=== PATIENT | male | born 1945 | race Caucasian/White ===

== ENCOUNTER 2017-02-02 12:49 | Outpatient (CLI) | payer MEDICARE ==
[2017-02-02 14:13] LABS: Bilirubin Negative (Negative); Blood, Urine Large (Negative); Glucose, Urine (Dipstick) Negative (Negative); Ketone, Urine Negative (Negative); Nitrite Negative (Negative); Protein, Urine (Dipstick) 100 mg/dL (Neg-Trace)
[2017-02-02 14:32] LABS: Hyaline Casts/LPF 0-3 HYALINE CAST LPF (0-3 Hyaline)
[2017-02-02 14:48] LABS: Bacteria/HPF 1+ HPF (None Seen); RBC/HPF 21-50 HPF (0-3); Yeast-All Forms 1+ HPF (None Seen)
--- NOTE | 2017-02-02 17:57 | ULT ---
TESTICULAR ULTRASOUND: Date: 02/02/17 HISTORY: Epididymitis. FINDINGS: There is a complex echogenic mass-like area in the left scrotum with numerous septations measuring a pproximately 4.0 x 5.0 cm. Considerations include infected hydrocele with septations and echogenic d ebris and material. Both testicles have symmetric size and both testicles show normal blood flow wit h color Doppler and spectral analysis. The left testicle does show mild heterogeneity which could re present orchitis. Both testicles measure approximately 4.5 x 2.5 x 3.5 cm. The right testicle appears unremarkable. There is a small right hydrocele. A left varicocele is noted. IMPRESSION: 1. A large complex mass-like lesion with internal septations in the left scrotum possibly represent ing dense echogenic material such as abscess. 2. Left varicocele. 3. Small right hydrocele. 4. Heterogeneous left testicle. Orchitis is suspected. POS: [facility]
== END 2017-02-02 12:50 | disposition home or self-care (01) ==
LOC: ULT 12:49
PROVIDERS: ATTEND Urology
DX: N45.1 Epididymitis (principal); I86.1 Scrotal varices; N43.3 Hydrocele, unspecified
CPT/HCPCS: 76870; 81001; 87086; 93976

== ENCOUNTER 2017-02-09 15:33 | Outpatient (CLI) | payer MEDICARE ==
[2017-02-09 17:24] LABS: PTT 34.6 SEC (22.9-36.1); Prothrombin Time 17.6 SEC (12.0-14.7)
[2017-02-09 17:25] LABS: Hematocrit 34.6 % (42.0-52.0); Red Blood Cell (RBC) Count 3.58 mill/uL (4.70-6.10); White Blood Cell (WBC) Count 3.8 thou/uL (4.8-10.8)
[2017-02-09 17:37] LABS: Anion Gap 11 mmol/L (10-20); BUN (Urea Nitrogen) 17 mg/dL (8.4-25.7); Calc. Creatinine Clearance 0 mL/min (70-130); Calcium 9.8 mg/dL (7.8-10.44); Carbon Dioxide 25 mmol/L (23-31); Chloride 110 mmol/L (98-107); Estimated GFR-MDRD 74
--- NOTE | 2017-02-09 18:55 | RAD ---
TWO VIEWS CHEST: History: Pre-operative chest radiograph. Date: 02-09-17 Comparison: 12-04-16 FINDINGS: Images demonstrate old healed fracture in the right seventh rib. This is unchanged since the previou s comparison exam. No newly developed masses or lesions are seen. There is some minimal blunting of the right costophrenic angle compatible with a tiny right sided pleural effusion or right pleural sc ar, again unchanged from the previous exam. IMPRESSION: Stable two views chest. POS: [facility]
--- NOTE | 2017-02-10 11:58 | EKG ---
Test Reason : Blood Pressure : / mmHG Vent. Rate : 067 BPM Atrial Rate : 069 BPM P-R Int : 000 ms QRS Dur : 128 ms QT Int : 438 ms P-R-T Axes : 000 060 -68 degrees QTc Int : 462 ms Atrial fibrillation Non-specific intra-ventricular conduction block Nonspecific T wave abnormality Abnormal ECG When compared with ECG of 18-JUL-2007 09:56, Inverted T waves have replaced nonspecific T wave abnormality in Lateral leads Confirmed by DR. Pradeep GAO ([id number]) on 02/10/2017 11:58:08 AM Referred By: ROCCO Confirmed By:DR. Pradeep GAO
--- OUTSIDE RECORDS SUMMARY | 2017-02-11 22:51 | XMS | Clinical Summary ---
:1945 Author Organization [facility] Address [address] [place] [address] Phone Care Team Providers Name Role Phone , Primary Care Provider Unavailable Allergies Active Allergy Reactions Severity Noted Date Comments No Known Drug Allergies 09/02/2015 Current Medications Prescription Sig. Disp. Refills Start Date End Date Status spironolactone (ALDACTONE) Take 25 mg by Active 25 MG tablet mouth. glimepiride (AMARYL) 2 MG Take 2 mg by Active tablet mouth. cortisone (CORTONE) 25 mg Take 25 mg by Active tablet mouth. WARFARIN SODIUM (WARFARIN Take by mouth. Active ORAL) finasteride (PROSCAR) 5 mg Take 5 mg by Active tablet mouth. furosemide (LASIX) 40 MG Take 40 mg by Active tablet mouth. atorvastatin (LIPITOR) 20 Take 20 mg by Active MG tablet mouth. lisinopril Take 20 mg by Active (PRINIVIL,ZESTRIL) 20 MG mouth. tablet amLODIPine (NORVASC) 5 MG Take 5 mg by Active tablet mouth. ranolazine (RANEXA) 1,000 Take 1,000 mg by Active mg 12 hr tablet mouth. Active Problems Not on file Social History Tobacco Use Types Packs/Day Years Used Date Never Assessed Sex Assigned at Date Recorded Not on file Last Filed Vital Signs Not on file Plan of Treatment Not on file Results Not on filefrom Last 3 Months
== END 2017-02-09 15:34 | disposition home or self-care (01) ==
LOC: LABBT 15:33
PROVIDERS: ATTEND Urology
DX: Z01.818 Encounter for other preprocedural examination (principal); N47.1 Phimosis; N45.1 Epididymitis; N43.1 Infected hydrocele; I48.91 Unspecified atrial fibrillation
CPT/HCPCS: 71020; 80048; 85027; 85610; 85730; 93005; 93010

== ENCOUNTER 2017-02-10 13:53 | Outpatient (CLI) | payer MEDICARE ==
[2017-02-10 15:32] LABS: Bilirubin Small (Negative); Blood, Urine Large (Negative); Glucose, Urine (Dipstick) Negative (Negative); Ketone, Urine Negative (Negative); Nitrite Negative (Negative); Protein, Urine (Dipstick) 300 mg/dL (Neg-Trace)
[2017-02-10 15:47] LABS: Bacteria/HPF None Seen HPF (None Seen); Hyaline Casts/LPF 4-6 HYALINE CAST LPF (0-3 Hyaline); RBC/HPF GREATER THAN 50-TNTC HPF (0-3); Squamous Epithelial 0-3 HPF (0-3)
--- OUTSIDE RECORDS SUMMARY | 2017-02-12 08:33 | XMS | Clinical Summary ---
:1945 Author Organization [facility] Address [address] [place] [address] Phone Care Team Providers Name Role Phone [...]
== END 2017-02-10 13:54 | disposition home or self-care (01) ==
LOC: LABBT 13:53
PROVIDERS: ATTEND Urology
DX: Z01.818 Encounter for other preprocedural examination (principal); N47.1 Phimosis; N45.1 Epididymitis; N43.1 Infected hydrocele; I48.91 Unspecified atrial fibrillation
CPT/HCPCS: 81001; 87086

== ENCOUNTER 2017-06-02 12:36 | Outpatient (CLI) | payer MEDICARE ==
[2017-06-02] MEDS ORDERED: ISOVUE-370 76%-LOCM 1 ML ONE (13:28)
== END 2017-06-02 12:37 | disposition home or self-care (01) ==
LOC: BICCT 12:36
PROVIDERS: ATTEND Urology
DX: R31.0 Gross hematuria (principal); N40.0 Benign prostatic hyperplasia without lower urinary tract symptoms; N32.89 Other specified disorders of bladder; K57.30 Diverticulosis of large intestine without perforation or abscess without bleeding; K40.90 Unilateral inguinal hernia, without obstruction or gangrene, not specified as recurrent; N28.89 Other specified disorders of kidney and ureter
CPT/HCPCS: 36415; 74178; 81001; 82565

== ENCOUNTER 2019-04-13 14:13 | Observation (INO) | payer MEDICARE ==
--- NOTE | 2019-04-13 16:24 | RAD ---
Exam: XR Elbow Rt 4 View STANDARD HISTORY: Right elbow pain with right arm swelling with extension of swelling into the forearm. COMPARISON: None FINDINGS: Small enthesophyte is seen involving the posterior aspect of the olecranon. There is a corticated oss eous density seen adjacent to and just distal to the medial epicondyle likely related to a remote avulsion injury. No acute fracture, dislocation, or other acute osseous abnormality is identified. There is subcutaneous soft tissue swelling seen about the elbow with subcutaneous soft tissue swellin g seen involving the lower arm and extending into the visualized forearm. Vascular calcifications are seen in the proximal forearm. IMPRESSION: 1. Subcutaneous soft tissue swelling about the elbow. Findings could be related to cellulitis in the correct clinical scenario. A greater degree of subcutaneous soft tissue swelling is seen posterior to the olecranon process of the ulna. Fluid in the olecranon bursa cannot be entirely excluded. 2. No acute osseous abnormality.
[2019-04-13 16:31] LABS: #Lymphocytes 1.1 thou/uL (1.20-3.40); #Monocytes 0.4 thou/uL (0.11-0.59); #Neutrophils 4.1 thou/uL (1.40-6.50); %Basophils 0.2 % (0.0-1.0); %Eosinophils 0.6 % (0.0-10.0); %Monocytes 7.8 % (0.0-10.0); %Neutrophils 71.4 % (42.0-75.0); Mean Corpuscular HGB CONC 32.8 g/dL (32.0-36.0); Mean Corpuscular Hemoglobin 30.8 pg (27.0-31.0); Mean Corpuscular Volume 93.7 fL (78.0-98.0); RBC Distribution Width 13.8 % (11.5-14.5); Red Blood Cell (RBC) Count 3.57 mill/uL (4.70-6.10); White Blood Cell (WBC) Count 5.7 thou/uL (4.8-10.8)
[2019-04-13 16:51] LABS: ALT (SGPT) 9 U/L (8-55); AST (SGOT) 18 U/L (5-34); Albumin 4.1 g/dL (3.4-4.8); Alkaline Phosphatase 123 U/L (40-110); Anion Gap 13 mmol/L (10-20); BUN (Urea Nitrogen) 20 mg/dL (8.4-25.7); Bilirubin, Total 1.5 mg/dL (0.2-1.2); CRP (Inflammatory) 5.54 mg/dL (= or < 0.5); Calc. Creatinine Clearance 0 mL/min (70-130); Calcium 9.6 mg/dL (7.8-10.44); Carbon Dioxide 24 mmol/L (23-31); Chloride 103 mmol/L (98-107); Estimated GFR-MDRD 55; Globulin 3.2 g/dL (2.4-3.5); Glucose 125 mg/dL (83-110); Potassium 3.8 mmol/L (3.5-5.1); Protein, Total 7.3 g/dL (5.8-8.1); Sodium 136 mmol/L (136-145)
[2019-04-13] MEDS ORDERED: cefTRIAXone\\ROCEPHIN 2 GM VIAL ONE (16:52)
[2019-04-13 16:59] LABS: Mean Platelet Volume 8.7 fL (7.4-10.4); Platelet Count 116 thou/uL (130-400); Platelet Morphology Comment Appears Decreased; RBC Morphology Normal
[2019-04-13] MEDS ORDERED: Cefepime 2 GM VIAL ONE (17:16)
[2019-04-13] MEDS ORDERED: Bisacodyl 10 MG SUPP PR PRN (17:41)
[2019-04-13] MEDS ORDERED: Ondansetron PF 4 MG/2 ML Vial IVP PRN (17:41)
[2019-04-13] MEDS ORDERED: Calcium Carbonate 500 MG ChewTAB PO PRN (17:41)
[2019-04-13] MEDS ORDERED: Acetaminophen 325 MG TAB PO PRN (17:41)
[2019-04-13] MEDS ORDERED: Senokot S 8.6-50 MG TAB PO PRN (17:41)
[2019-04-13] MEDS ORDERED: Ondansetron ODT 4 MG TAB PO PRN (17:41)
--- NOTE | 2019-04-13 17:44 | ULT ---
RIGHT UPPER EXTREMITY VENOUS DUPLEX EXAM: 04/13/19 HISTORY: Right upper extremity pain and swelling. Real time color Doppler evaluation of the right upper extremity was performed to include the internal jugular, subclavian, axillary, basilic, brachial and cephalic veins. This shows a patent deep venous system. There is normal compressibility and augmentation. There is no evidence of DVT. IMPRESSION: No evidence of DVT of the right upper extremity. POS: [facility]
[2019-04-13 17:48] LABS: Lactic Acid 1.7 mmol/L (0.5-2.2)
[2019-04-13] MEDS ORDERED: traMADol HCl 50 MG TAB PO PRN (17:50)
--- NOTE | 2019-04-13 18:26 | HP ---
PRIMARY CARE PHYSICIAN: EMILY Cuellar. PRIMARY INSURANCE HEALTHCARE REPRESENTATIVE: Ascencion Peters MD. CHIEF COMPLAINT: Right upper extremity swelling of 2 days' duration. HISTORY OF PRESENT ILLNESS: The patient is a 73-year-old male with cardiomyopathy and atrial fibrillation, on anticoagulation, who presented to the emergency room with above complaints. Over the last 2-3 days, the patient noticed swelling along with erythema around the right elbow. This progressively got worse. This morning, he had significant swelling of his whole right forearm. He also had fever with chills. He did not check his temperature, however. He had [id number] pain as well. The pain was worse with movement of his upper extremity. He denies any injuries or fall. He reports significant tenderness around his right elbow. No nausea or vomiting reported. In the emergency room, initial vital signs showed temperature 99.3, respirations of 18, pulse rate of 70 with a blood pressure of 123/61 with O2 saturation 96% on room air. Right upper extremity Doppler was negative for DVT. The right upper extremity x-rays showed subcutaneous soft tissue swelling. Fluid in the olecranon bursa cannot be entirely excluded. He received cefepime along with vancomycin in the emergency room. PAST MEDICAL HISTORY: 1. Chronic systolic heart failure, currently on heart transplant list. 2. Diabetes mellitus, type 2. 3. Benign prostatic hypertrophy. 4. Obstructive sleep apnea, on CPAP at 12 cm nightly. 5. Hyperlipidemia. 6. Obesity. 7. Hypertension. 8. Left inguinal hernia. 9. Left hydrocele. PAST SURGICAL HISTORY: 1. Left hydrocelectomy in 2017. 2. Left hernia repair in 2017. 3. Left epididymectomy by Dr. Solis in 2017. ALLERGIES: NO KNOWN DRUG ALLERGIES. CURRENT HOME MEDICATIONS: 1. Metformin 1000 mg b.i.d. 2. Lasix 40 mg daily. 3. Potassium chloride 20 mEq daily. 4. Pravastatin 20 mg nightly. 5. Eliquis 5 mg b.i.d. 6. Carvedilol 50 mg b.i.d. 7. Finasteride 5 mg daily. 8. Lisinopril 20 mg daily. SOCIAL HISTORY: The patient is a former smoker. Currently lives at home with his . He is a full code and makes his own decision with the help of his . FAMILY HISTORY: Heart disease and hypertension run in his family. REVIEW OF SYSTEMS: All other review of systems were reviewed and were found negative. PHYSICAL EXAMINATION: VITAL SIGNS: As discussed above. GENERAL: A 73-year-old male, in no significant distress. Pain controlled. HEENT: Head, atraumatic and normocephalic. Sclerae anicteric. Moist mucous membranes. No oral lesion. NECK: Supple. No JVD. No carotid bruit. LUNGS: Clear to auscultation bilaterally. No wheezing, rales, or rhonchi. HEART: S1 and S2 present. Regular rate and rhythm. No rubs or gallops. ABDOMEN: Soft and nontender. Bowel sounds present. EXTREMITIES: There is significant swelling along with warmth and erythema of the right forearm. There is maximal tenderness over the right olecranon area. Lower extremity had chronic ulceration. SKIN: As discussed above. NEUROLOGIC: Grossly nonfocal. Moves all 4 extremities. PSYCHIATRIC: Alert, awake, and oriented x3. Normal affect. LYMPH NODES: No palpable lymph nodes in the neck and groin. LABORATORY FINDINGS: WBC 5.7 with hemoglobin 11, hematocrit 33.5, and platelets of 116. Chemistry showed sodium 136, potassium 3.8, chloride 103, bicarb 24, BUN 20, and creatinine 1.28. Lactic acid 1.7. Total bilirubin 1.5. CRP was 5.5. Elbow x-ray by my review as discussed above. Right upper extremity Doppler was negative for DVT. IMPRESSION: 1. Right upper extremity cellulitis with suspected right olecranon bursitis. 2. Chronic systolic heart failure, followed by Dr. Ascencion Peters, compensated. 3. Chronic atrial fibrillation, on anticoagulation. 4. Hypertension. 5. Hyperlipidemia. 6. Diabetes mellitus, type 2. PLAN: The patient will be monitored on the medical floor as observation. IV vancomycin and ceftriaxone. Monitor vancomycin level. All other home medications have been restarted. We will reassess in a.m. and decide if orthopedic team needs to be consulted me. There is no need for insulin sliding scale. We will try to arrange for a CPAP tonight. I advised the spouse to get a CPAP machine tomorrow. Pain controlled. Plan of care was discussed with the patient in detail. He stated understanding. Job ID: [id number]
[2019-04-13 19:58] VITALS: BMI 37.0
[2019-04-13] MEDS: Pravastatin Sodium 20 MG TAB PO SCH (21:40)
[2019-04-13] MEDS: Carvedilol 25 MG TAB PO SCH (21:40)
[2019-04-13] MEDS: Apixaban 5 MG TAB PO SCH (23:22)
[2019-04-14] MEDS: cefTRIAXone\\ROCEPHIN 2 GM in Sodium Chloride 0.9% 100 ML IVPB SCH (01:50)
[2019-04-14] MEDS: Vancomycin 1.5 GRAM/300 ML BAG 1.5 GM in Premix Bag 1 BAG IVPB SCH ×2 (04:09→16:57)
[2019-04-14 05:19] LABS: #Lymphocytes 1.2 thou/uL (1.20-3.40); #Monocytes 0.5 thou/uL (0.11-0.59); %Basophils 0.1 % (0.0-1.0); %Lymphocytes 25.6 % (21.0-51.0); %Monocytes 11.2 % (0.0-10.0); %Neutrophils 62.2 % (42.0-75.0); Hemoglobin 9.6 g/dL (14.0-18.0); Mean Corpuscular HGB CONC 33.2 g/dL (32.0-36.0); Mean Corpuscular Volume 93.5 fL (78.0-98.0); Mean Platelet Volume 8.9 fL (7.4-10.4); Platelet Count 101 thou/uL (130-400); RBC Distribution Width 13.8 % (11.5-14.5); Red Blood Cell (RBC) Count 3.09 mill/uL (4.70-6.10); White Blood Cell (WBC) Count 4.8 thou/uL (4.8-10.8)
[2019-04-14 05:48] LABS: ALT (SGPT) Less than 7 U/L (8-55); AST (SGOT) 15 U/L (5-34); Albumin 3.5 g/dL (3.4-4.8); Alkaline Phosphatase 100 U/L (40-110); Anion Gap 13 mmol/L (10-20); BUN (Urea Nitrogen) 20 mg/dL (8.4-25.7); Bilirubin, Total 0.8 mg/dL (0.2-1.2); Calc. Creatinine Clearance 96 mL/min (70-130); Calcium 8.6 mg/dL (7.8-10.44); Carbon Dioxide 24 mmol/L (23-31); Chloride 104 mmol/L (98-107); Estimated GFR-MDRD 61; Globulin 2.8 g/dL (2.4-3.5); Glucose 136 mg/dL (83-110); Magnesium 1.7 mg/dL (1.6-2.6); Potassium 3.8 mmol/L (3.5-5.1); Protein, Total 6.3 g/dL (5.8-8.1); Sodium 137 mmol/L (136-145)
[2019-04-14] MEDS ORDERED: metFORMIN 500 MG TAB PO SCH (08:00)
[2019-04-14] MEDS: Carvedilol 25 MG TAB PO SCH ×2 (08:18→20:57)
[2019-04-14] MEDS: Lisinopril 20 MG TAB PO SCH (08:18)
[2019-04-14] MEDS: Apixaban 5 MG TAB PO SCH ×2 (08:18→20:57)
[2019-04-14] MEDS: Furosemide 40 MG TAB PO SCH (08:19)
[2019-04-14] MEDS: Potassium Chloride 20 MEQ TAB PO SCH (08:19)
[2019-04-14] MEDS: Finasteride 5 MG TAB PO SCH (08:19)
[2019-04-14] MEDS: metFORMIN 500 MG TAB PO SCH (16:57)
[2019-04-14] MEDS: Pravastatin Sodium 20 MG TAB PO SCH (20:56)
--- NOTE | 2019-04-14 21:17 | PDOC.HOSPP ---
- Subjective Encounter Date: 04/14/19 Encounter Time: 08:00 Subjective: Patient seen and examined for RUE Cellulitis. Erythema improving. No new complaints. No overnight events - Objective Vital Signs & Weight: Vital Signs (12 hours) Temp Pulse Resp BP Pulse Ox 04/14/19 19:15 98.9 F 71 18 143/68 H 97 04/14/19 15:25 98.4 F 61 18 110/51 L 98 04/14/19 11:18 98.6 F 86 18 137/61 95 Weight Weight 265 lb 4.8 oz I&O: 04/13/19 04/14/19 04/15/19 06:59 06:59 06:59 Intake Total 400 1020 Balance 400 1020 Result Diagrams: 04/14/19 05:01 04/14/19 05:01 Radiology Reviewed by me: Yes (No DVT) Hospitalist ROS - Review of Systems Respiratory: denies: cough, dry, shortness of breath, hemoptysis, SOB with excertion, pleuritic pain, sputum, wheezing, other Cardiovascular: denies: chest pain, palpitations, orthopnea, paroxysmal noc. dyspnea, edema, light headedness, other - Medication Medications: Active Medications Generic Name Dose Route Start Last Admin Trade Name Freq PRN Reason Stop Dose Admin Apixaban 5 mg 04/13/19 21:00 04/14/19 20:57 Eliquis PO 5 mg BID YAJAIRA Administration Carvedilol 50 mg 04/13/19 21:00 04/14/19 20:57 Coreg PO 50 mg BID YAJAIRA Administration Finasteride 5 mg 04/14/19 09:00 04/14/19 08:19 Proscar PO 5 mg DAILY YAJAIRA Administration Furosemide 40 mg 04/14/19 09:00 04/14/19 08:19 Lasix PO 40 mg DAILY YAJAIRA Administration Vancomycin HCl 1.5 gm/ Device 300 mls @ 200 mls/hr 04/14/19 04:00 04/14/19 16 :57 IVPB 300 mls 0400,1600 YAJAIRA Administration Ceftriaxone Sodium 2 gm/ 100 mls @ 200 mls/hr 04/14/19 02:00 04/14/19 01:50 Sodium Chloride IVPB 100 mls 0200 YAJAIRA Administration Lisinopril 20 mg 04/14/19 09:00 04/14/19 08:18 Zestril PO 20 mg DAILY YAJAIRA Administration Metformin HCl 500 mg 04/14/19 17:00 04/14/19 16:57 Glucophage PO Not Given BID-WM [facility] Potassium Chloride 20 meq 04/14/19 09:00 04/14/19 08:19 K-Dur PO 20 meq DAILY YAJAIRA Administration Pravastatin Sodium 20 mg 04/13/19 21:00 04/14/19 20:56 Pravachol PO 20 mg HS YAJAIRA Administration - Exam General Appearance: NAD Neck: supple, no JVD Heart: RRR, no gallops Respiratory: CTAB, no rales Gastrointestinal: non-tender, non-distended Extremities: 2+ LE edema (RUE) Hosp A/P - Plan 1. Right upper extremity cellulitis with suspected right olecranon bursitis. 2. Chronic systolic heart failure, followed by Dr. Ascencion Peters, compensated. 3. Chronic atrial fibrillation, on anticoagulation. 4. Hypertension. 5. Hyperlipidemia. 6. Diabetes mellitus, type 2. PLAN: Cont IV Vancomycin/Ceftriaxone Monitor Vancomycin level Cont other meds DC in 24-48 hr if stable Change Atbx to PO in AM Blood cultures negative
[2019-04-15] MEDS: cefTRIAXone\\ROCEPHIN 2 GM in Sodium Chloride 0.9% 100 ML IVPB SCH (02:13)
[2019-04-15] MEDS: Vancomycin 1.5 GRAM/300 ML BAG 1.5 GM in Premix Bag 1 BAG IVPB SCH ×2 (03:14→14:03)
[2019-04-15 04:26] LABS: Vancomycin, Trough 19.2 ug/mL
[2019-04-15] MEDS: metFORMIN 500 MG TAB PO SCH (08:15)
[2019-04-15] MEDS: Potassium Chloride 20 MEQ TAB PO SCH (08:15)
[2019-04-15] MEDS: Carvedilol 25 MG TAB PO SCH (08:15)
[2019-04-15] MEDS: Apixaban 5 MG TAB PO SCH (08:15)
[2019-04-15] MEDS: Finasteride 5 MG TAB PO SCH (08:16)
[2019-04-15] MEDS: Lisinopril 20 MG TAB PO SCH (08:16)
[2019-04-15] MEDS: Furosemide 40 MG TAB PO SCH (08:16)
--- NOTE | 2019-04-15 12:26 | DIS ---
DATE OF ADMISSION: 04/13/2019 DATE OF DISCHARGE: 04/15/2019 DISCHARGE DISPOSITION: Home. FOLLOWUP: Follow up with Dr. Jaimie Amezcua in 3 days. ALLERGIES: NO KNOWN DRUG ALLERGIES. DISCHARGE MEDICATIONS: 1. Keflex 500 mg every 6 hourly for next 10 days. 2. Doxycycline 100 mg b.i.d. for next 10 days. All other home medications were left unchanged. The patient was seen and examined on the day of discharge. Right upper extremity erythema has significantly improved. Swelling is improving. BRIEF HOSPITAL COURSE: The patient is a 73-year-old male, who presented to the hospital with erythema along with tenderness and swelling of the right upper extremity of 2 days duration. His workup was consistent with right upper extremity cellulitis. He was started on IV vancomycin and ceftriaxone with good improvement. The tenderness has significantly improved. He still has some swelling. Erythema has resolved. His antibiotic will be transitioned to oral for 10 more days. He was advised to follow up with his PCP in 3 days. Please refer to the history and physical for details on initial presentation. FINAL DIAGNOSES: 1. Right upper extremity cellulitis with suspected right olecranon bursitis improving. 2. Chronic systolic heart failure, followed by Dr. Ascencion Peters. 3. Chronic atrial fibrillation, on anticoagulation. 4. Hypertension. 5. Hyperlipidemia. 6. Diabetes mellitus type 2. 7. Abnormal LFTs on admission, resolved. 8. Chronic kidney disease, stage 2. 9. Chronic anemia. 10. Obesity with a BMI of 36.8. 11. Chronic thrombocytopenia. SIGNIFICANT LABS: CRP 5.54, WBC 5.7 without left shift. Plan was discussed with the patient in detail. He stated understanding. Job ID: [id number]
[2019-04-15 13:02] VITALS: BP 126/55; TEMP 97.5
== END 2019-04-15 15:58 | disposition home or self-care (01) ==
LOC: ERS 14:13 → 2SW 17:08
PROVIDERS: ADMIT Internal Medicine; ATTEND Internal Medicine
DX: L03.113 Cellulitis of right upper limb (principal); I13.0 Hypertensive heart and chronic kidney disease with heart failure and stage 1 through stage 4 chronic kidney disease, or unspecified chronic kidney disease; E11.22 Type 2 diabetes mellitus with diabetic chronic kidney disease; N18.2 Chronic kidney disease, stage 2 (mild); D63.1 Anemia in chronic kidney disease; I50.22 Chronic systolic (congestive) heart failure; E78.5 Hyperlipidemia, unspecified; D69.6 Thrombocytopenia, unspecified; E66.9 Obesity, unspecified; I48.20 Chronic atrial fibrillation, unspecified; I42.9 Cardiomyopathy, unspecified; G47.33 Obstructive sleep apnea (adult) (pediatric); Z68.36 Body mass index [BMI] 36.0-36.9, adult; Z79.01 Long term (current) use of anticoagulants; Z79.84 Long term (current) use of oral hypoglycemic drugs; Z79.899 Other long term (current) drug therapy; Z87.891 Personal history of nicotine dependence; Z99.89 Dependence on other enabling machines and devices
CPT/HCPCS: 36415; 80053; 80202; 83605; 83735; 85025; 85652; 86140; 87040; 94660; 96365; 96366; 96367; 96375; G0378; J0692; J0696; J3370; J3490

== ENCOUNTER 2020-06-09 13:25 | Inpatient (IN) | payer MEDICARE ==
[2020-06-09] MEDS ORDERED: Furosemide 40 MG/4 ML VIAL ONE (14:15)
[2020-06-09] MEDS ORDERED: Acetaminophen 500 MG TAB ONE (14:22)
[2020-06-09] MEDS ORDERED: HumaLOG 300 UNITS/3 ML VIAL SC PRN (18:17)
[2020-06-09] MEDS ORDERED: Dextrose 5% in Water 1,000 ML IV PRN (18:17)
[2020-06-09] MEDS ORDERED: Dextrose 50% Abboject 50 ML SYRINGE SLOW IVP PRN (18:17)
[2020-06-09] MEDS ORDERED: Ondansetron ODT 4 MG TAB PO PRN (18:21)
[2020-06-09] MEDS ORDERED: Famotidine 20 MG TAB ONE (20:31)
[2020-06-09] MEDS: Apixaban 5 MG TAB PO SCH (20:53)
[2020-06-09] MEDS: Atorvastatin Calcium 10 MG TAB PO SCH (20:53)
[2020-06-09] MEDS: Famotidine 20 MG TAB PO SCH (20:53)
[2020-06-09] MEDS: Carvedilol 25 MG TAB PO SCH (20:53)
[2020-06-10] MEDS ORDERED: Furosemide 40 MG TAB PO SCH (06:00)
[2020-06-10] MEDS ORDERED: Furosemide 100 MG/10 ML VIAL SLOW IVP SCH (06:00)
[2020-06-10] MEDS: Famotidine 20 MG TAB PO SCH ×2 (08:57→19:59)
[2020-06-10] MEDS: Potassium Chloride 20 MEQ TAB PO SCH (08:57)
[2020-06-10] MEDS: Carvedilol 25 MG TAB PO SCH ×2 (08:58→19:58)
[2020-06-10] MEDS: Apixaban 5 MG TAB PO SCH ×2 (08:58→19:58)
[2020-06-10] MEDS: Finasteride 5 MG TAB PO SCH (08:58)
[2020-06-10] MEDS ORDERED: Lisinopril 20 MG TAB PO SCH (09:00)
[2020-06-10] MEDS: Furosemide 100 MG/10 ML VIAL SLOW IVP SCH ×2 (09:13→14:48)
[2020-06-10] MEDS: Acetaminophen 325 MG TAB PO PRN (15:05)
[2020-06-10] MEDS: Atorvastatin Calcium 10 MG TAB PO SCH (19:58)
[2020-06-10] MEDS ORDERED: OLANZapine 10 MG VIAL IM SCH ×2 (21:15→21:30)
[2020-06-10] MEDS ORDERED: Sterile Water 10 ML VIAL FS PRN (21:15)
[2020-06-11] MEDS: Furosemide 100 MG/10 ML VIAL SLOW IVP SCH ×2 (05:48→14:40)
[2020-06-11] MEDS: Apixaban 5 MG TAB PO SCH ×2 (08:28→20:40)
[2020-06-11] MEDS: Finasteride 5 MG TAB PO SCH (08:28)
[2020-06-11] MEDS: Famotidine 20 MG TAB PO SCH ×2 (08:28→20:39)
[2020-06-11] MEDS: Carvedilol 25 MG TAB PO SCH ×2 (08:28→20:40)
[2020-06-11] MEDS: Potassium Chloride 20 MEQ TAB PO SCH (08:28)
[2020-06-11] MEDS ORDERED: Carvedilol 25 MG TAB PO SCH (09:00)
[2020-06-11] MEDS: Atorvastatin Calcium 10 MG TAB PO SCH (20:39)
[2020-06-12] MEDS: Furosemide 100 MG/10 ML VIAL SLOW IVP SCH (06:46)
[2020-06-12] MEDS: Apixaban 5 MG TAB PO SCH ×2 (10:30→21:50)
[2020-06-12] MEDS: Potassium Chloride 20 MEQ TAB PO SCH (15:09)
[2020-06-12] MEDS: Finasteride 5 MG TAB PO SCH (15:09)
[2020-06-12] MEDS: Famotidine 20 MG TAB PO SCH (15:09)
[2020-06-12] MEDS: Carvedilol 25 MG TAB PO SCH ×2 (15:09→21:50)
[2020-06-12] MEDS ORDERED: Acetaminophen 325 MG Suppository PR PRN (18:34)
[2020-06-12] MEDS: Acetaminophen 325 MG TAB PO PRN (21:49)
[2020-06-12] MEDS: Atorvastatin Calcium 10 MG TAB PO SCH (21:51)
[2020-06-12] MEDS: Piperacillin/Tazobactam 2.25 GM in Sodium Chloride 0.9% 100 ML IVPB SCH (23:49)
[2020-06-13] MEDS: Acetaminophen 325 MG TAB PO PRN ×2 (04:21→10:20)
[2020-06-13] MEDS: Piperacillin/Tazobactam 2.25 GM in Sodium Chloride 0.9% 100 ML IVPB SCH ×4 (05:59→23:21)
[2020-06-13] MEDS: Famotidine 20 MG TAB PO SCH (10:21)
[2020-06-13] MEDS: Carvedilol 25 MG TAB PO SCH ×2 (10:21→20:15)
[2020-06-13] MEDS: Apixaban 5 MG TAB PO SCH ×2 (10:21→20:15)
[2020-06-13] MEDS: Potassium Chloride 20 MEQ TAB PO SCH (10:22)
[2020-06-13] MEDS: Finasteride 5 MG TAB PO SCH (10:22)
[2020-06-13] MEDS: hydrALAZINE 25 MG TAB PO SCH ×3 (10:22→20:25)
[2020-06-13] MEDS: Atorvastatin Calcium 10 MG TAB PO SCH (20:16)
[2020-06-14] MEDS: Piperacillin/Tazobactam 2.25 GM in Sodium Chloride 0.9% 100 ML IVPB SCH ×4 (05:25→23:10)
[2020-06-14] MEDS: HumaLOG 300 UNITS/3 ML VIAL SC PRN ×2 (06:32→17:35)
[2020-06-14] MEDS: Apixaban 5 MG TAB PO SCH ×2 (08:08→20:33)
[2020-06-14] MEDS: Carvedilol 25 MG TAB PO SCH ×2 (08:08→20:33)
[2020-06-14] MEDS: Potassium Chloride 20 MEQ TAB PO SCH (08:09)
[2020-06-14] MEDS: Finasteride 5 MG TAB PO SCH (08:09)
[2020-06-14] MEDS: Famotidine 20 MG TAB PO SCH (08:09)
[2020-06-14] MEDS: hydrALAZINE 25 MG TAB PO SCH ×3 (08:09→20:33)
[2020-06-14] MEDS: Acetaminophen 325 MG TAB PO PRN (12:44)
[2020-06-14] MEDS: Atorvastatin Calcium 10 MG TAB PO SCH (20:33)
[2020-06-15] MEDS: Piperacillin/Tazobactam 2.25 GM in Sodium Chloride 0.9% 100 ML IVPB SCH ×4 (05:11→23:29)
[2020-06-15] MEDS: Finasteride 5 MG TAB PO SCH (09:18)
[2020-06-15] MEDS: Famotidine 20 MG TAB PO SCH (09:18)
[2020-06-15] MEDS: Apixaban 5 MG TAB PO SCH ×2 (09:18→21:18)
[2020-06-15] MEDS: hydrALAZINE 25 MG TAB PO SCH ×3 (09:18→21:18)
[2020-06-15] MEDS: Potassium Chloride 20 MEQ TAB PO SCH (09:18)
[2020-06-15] MEDS: Carvedilol 25 MG TAB PO SCH ×2 (09:18→21:21)
[2020-06-15] MEDS: Acetaminophen 325 MG TAB PO PRN ×2 (17:35→21:18)
[2020-06-15] MEDS: Atorvastatin Calcium 10 MG TAB PO SCH (21:18)
[2020-06-16] MEDS: Piperacillin/Tazobactam 2.25 GM in Sodium Chloride 0.9% 100 ML IVPB SCH ×3 (05:34→18:22)
[2020-06-16] MEDS: Famotidine 20 MG TAB PO SCH (09:18)
[2020-06-16] MEDS: hydrALAZINE 25 MG TAB PO SCH ×3 (09:18→20:33)
[2020-06-16] MEDS: Potassium Chloride 20 MEQ TAB PO SCH (09:18)
[2020-06-16] MEDS: Finasteride 5 MG TAB PO SCH (09:18)
[2020-06-16] MEDS: Carvedilol 25 MG TAB PO SCH ×2 (09:18→20:34)
[2020-06-16] MEDS: Apixaban 5 MG TAB PO SCH ×2 (09:18→20:33)
[2020-06-16] MEDS: Atorvastatin Calcium 10 MG TAB PO SCH (20:34)
[2020-06-16] MEDS: Acetaminophen 325 MG TAB PO PRN (20:34)
[2020-06-17] MEDS: Piperacillin/Tazobactam 2.25 GM in Sodium Chloride 0.9% 100 ML IVPB SCH ×5 (02:56→23:03)
[2020-06-17] MEDS: Finasteride 5 MG TAB PO SCH (09:35)
[2020-06-17] MEDS: Apixaban 5 MG TAB PO SCH ×2 (09:35→20:29)
[2020-06-17] MEDS: Famotidine 20 MG TAB PO SCH (09:35)
[2020-06-17] MEDS: Carvedilol 25 MG TAB PO SCH (09:35)
[2020-06-17] MEDS: Potassium Chloride 20 MEQ TAB PO SCH (09:35)
[2020-06-17] MEDS: hydrALAZINE 25 MG TAB PO SCH ×3 (09:36→20:29)
[2020-06-17] MEDS ORDERED: Carvedilol 25 MG TAB PO SCH (17:45)
[2020-06-17] MEDS: Atorvastatin Calcium 10 MG TAB PO SCH (20:29)
[2020-06-18] MEDS: Piperacillin/Tazobactam 2.25 GM in Sodium Chloride 0.9% 100 ML IVPB SCH ×3 (05:09→17:15)
[2020-06-18] MEDS ORDERED: Furosemide 40 MG/4 ML VIAL SLOW IVP SCH (08:15)
[2020-06-18] MEDS: Apixaban 5 MG TAB PO SCH ×2 (09:00→20:16)
[2020-06-18] MEDS: Famotidine 20 MG TAB PO SCH (09:00)
[2020-06-18] MEDS: Potassium Chloride 20 MEQ TAB PO SCH (09:00)
[2020-06-18] MEDS: Carvedilol 25 MG TAB PO SCH ×2 (09:01→20:16)
[2020-06-18] MEDS: Finasteride 5 MG TAB PO SCH (09:01)
[2020-06-18] MEDS: Sacubitril 49 MG/Valsartan 51 MG TABLET PO SCH (20:16)
[2020-06-18] MEDS: Atorvastatin Calcium 10 MG TAB PO SCH (20:16)
[2020-06-19] MEDS: Piperacillin/Tazobactam 2.25 GM in Sodium Chloride 0.9% 100 ML IVPB SCH ×5 (00:34→23:14)
[2020-06-19] MEDS: Acetaminophen 325 MG TAB PO PRN ×2 (00:37→11:42)
[2020-06-19] MEDS ORDERED: Furosemide 40 MG/4 ML VIAL SLOW IVP SCH (08:15)
[2020-06-19] MEDS ORDERED: Metolazone 5 MG TAB PO SCH (08:15)
[2020-06-19] MEDS: Sacubitril 49 MG/Valsartan 51 MG TABLET PO SCH ×2 (09:22→19:51)
[2020-06-19] MEDS: Finasteride 5 MG TAB PO SCH (09:22)
[2020-06-19] MEDS: Apixaban 5 MG TAB PO SCH ×2 (09:23→19:51)
[2020-06-19] MEDS: Famotidine 20 MG TAB PO SCH (09:23)
[2020-06-19] MEDS: Potassium Chloride 20 MEQ TAB PO SCH (09:23)
[2020-06-19] MEDS: Atorvastatin Calcium 10 MG TAB PO SCH (19:51)
[2020-06-19] MEDS ORDERED: Pravastatin Sodium 40 MG TAB PO SCH (21:00)
[2020-06-20] MEDS: Piperacillin/Tazobactam 2.25 GM in Sodium Chloride 0.9% 100 ML IVPB SCH ×3 (05:43→17:02)
[2020-06-20] MEDS: Finasteride 5 MG TAB PO SCH (09:10)
[2020-06-20] MEDS: Famotidine 20 MG TAB PO SCH (09:10)
[2020-06-20] MEDS: Sacubitril 49 MG/Valsartan 51 MG TABLET PO SCH ×2 (09:10→21:36)
[2020-06-20] MEDS: Potassium Chloride 20 MEQ TAB PO SCH (09:10)
[2020-06-20] MEDS: Apixaban 5 MG TAB PO SCH (09:10)
[2020-06-20] MEDS ORDERED: Propofol 1,000 MG/100 ML VIAL IV ONE (15:59)
[2020-06-20] MEDS: Carvedilol 6.25 MG TAB PO SCH (16:59)
[2020-06-20] MEDS ORDERED: Carvedilol 25 MG TAB PO SCH (17:00)
[2020-06-20] MEDS: Atorvastatin Calcium 10 MG TAB PO SCH (21:36)
[2020-06-20] MEDS: Enoxaparin Sodium 120 MG/0.8 ML SYRINGE SC SCH (21:36)
[2020-06-21] MEDS: Piperacillin/Tazobactam 2.25 GM in Sodium Chloride 0.9% 100 ML IVPB SCH ×5 (00:03→23:32)
[2020-06-21] MEDS: Famotidine 20 MG TAB PO SCH ×2 (08:15→21:25)
[2020-06-21] MEDS: Carvedilol 6.25 MG TAB PO SCH ×2 (08:15→18:30)
[2020-06-21] MEDS: Finasteride 5 MG TAB PO SCH (08:15)
[2020-06-21] MEDS: Potassium Chloride 20 MEQ TAB PO SCH (08:16)
[2020-06-21] MEDS: Sacubitril 49 MG/Valsartan 51 MG TABLET PO SCH ×2 (08:16→21:25)
[2020-06-21] MEDS: Enoxaparin Sodium 120 MG/0.8 ML SYRINGE SC SCH (08:16)
[2020-06-21] MEDS: Spironolactone 25 MG TAB PO SCH (11:34)
[2020-06-21] MEDS: Atorvastatin Calcium 10 MG TAB PO SCH (21:26)
[2020-06-22] MEDS: Piperacillin/Tazobactam 2.25 GM in Sodium Chloride 0.9% 100 ML IVPB SCH ×3 (06:13→16:25)
[2020-06-22] MEDS: Furosemide 40 MG TAB PO SCH (07:49)
[2020-06-22] MEDS: Spironolactone 25 MG TAB PO SCH (07:49)
[2020-06-22] MEDS: Sacubitril 49 MG/Valsartan 51 MG TABLET PO SCH ×2 (07:50→21:21)
[2020-06-22] MEDS: Finasteride 5 MG TAB PO SCH (07:50)
[2020-06-22] MEDS: Carvedilol 6.25 MG TAB PO SCH ×2 (07:50→16:25)
[2020-06-22] MEDS: Famotidine 20 MG TAB PO SCH ×2 (07:50→21:21)
[2020-06-22] MEDS ORDERED: Fentanyl 100 MCG/2 ML VIAL ONE (09:21)
[2020-06-22] MEDS ORDERED: Sodium Bicarbonate 2.5 MEQ/5 ML VIAL ONE (09:21)
[2020-06-22] MEDS: Atorvastatin Calcium 10 MG TAB PO SCH (21:21)
[2020-06-23] MEDS: Acetaminophen 325 MG TAB PO PRN (00:36)
[2020-06-23] MEDS: Piperacillin/Tazobactam 2.25 GM in Sodium Chloride 0.9% 100 ML IVPB SCH ×2 (00:37→05:53)
[2020-06-23] MEDS: Sacubitril 49 MG/Valsartan 51 MG TABLET PO SCH ×2 (07:35→21:33)
[2020-06-23] MEDS: Famotidine 20 MG TAB PO SCH ×2 (07:35→21:33)
[2020-06-23] MEDS: Carvedilol 6.25 MG TAB PO SCH ×2 (07:36→16:18)
[2020-06-23] MEDS: Finasteride 5 MG TAB PO SCH (07:36)
[2020-06-23] MEDS: Spironolactone 25 MG TAB PO SCH (07:36)
[2020-06-23] MEDS: Furosemide 40 MG TAB PO SCH (07:36)
[2020-06-23] MEDS: Atorvastatin Calcium 10 MG TAB PO SCH (21:33)
[2020-06-24] MEDS: Famotidine 20 MG TAB PO SCH ×2 (07:40→20:12)
[2020-06-24] MEDS: Furosemide 40 MG TAB PO SCH (07:40)
[2020-06-24] MEDS: Carvedilol 6.25 MG TAB PO SCH ×2 (07:40→16:16)
[2020-06-24] MEDS: Spironolactone 25 MG TAB PO SCH (07:40)
[2020-06-24] MEDS: Finasteride 5 MG TAB PO SCH (07:41)
[2020-06-24] MEDS: Sacubitril 49 MG/Valsartan 51 MG TABLET PO SCH ×2 (07:41→20:12)
[2020-06-24] MEDS: Atorvastatin Calcium 10 MG TAB PO SCH (20:12)
[2020-06-25] MEDS: Famotidine 20 MG TAB PO SCH ×2 (07:18→20:09)
[2020-06-25] MEDS: Carvedilol 6.25 MG TAB PO SCH ×2 (07:18→17:12)
[2020-06-25] MEDS: Sacubitril 49 MG/Valsartan 51 MG TABLET PO SCH ×2 (07:18→20:09)
[2020-06-25] MEDS: Finasteride 5 MG TAB PO SCH (07:18)
[2020-06-25] MEDS: Spironolactone 25 MG TAB PO SCH (07:18)
[2020-06-25] MEDS: Furosemide 40 MG TAB PO SCH (07:18)
[2020-06-25] MEDS: Atorvastatin Calcium 10 MG TAB PO SCH (20:09)
[2020-06-26] MEDS: Finasteride 5 MG TAB PO SCH (07:27)
[2020-06-26] MEDS: Sacubitril 49 MG/Valsartan 51 MG TABLET PO SCH ×2 (07:27→20:10)
[2020-06-26] MEDS: Spironolactone 25 MG TAB PO SCH (07:27)
[2020-06-26] MEDS: Furosemide 40 MG TAB PO SCH (07:27)
[2020-06-26] MEDS: Carvedilol 6.25 MG TAB PO SCH ×2 (07:27→16:45)
[2020-06-26] MEDS: Famotidine 20 MG TAB PO SCH ×2 (07:27→20:10)
[2020-06-26] MEDS: Atorvastatin Calcium 10 MG TAB PO SCH (20:10)
[2020-06-26] MEDS: Apixaban 5 MG TAB PO SCH (20:10)
[2020-06-27] MEDS: Famotidine 20 MG TAB PO SCH ×2 (07:46→20:59)
[2020-06-27] MEDS: Spironolactone 25 MG TAB PO SCH (07:47)
[2020-06-27] MEDS: Sacubitril 49 MG/Valsartan 51 MG TABLET PO SCH ×2 (07:47→20:58)
[2020-06-27] MEDS: Carvedilol 6.25 MG TAB PO SCH ×2 (07:47→18:05)
[2020-06-27] MEDS: Furosemide 40 MG TAB PO SCH (07:48)
[2020-06-27] MEDS: Finasteride 5 MG TAB PO SCH (07:48)
[2020-06-27] MEDS: Apixaban 5 MG TAB PO SCH ×2 (07:48→20:59)
[2020-06-27] MEDS: Atorvastatin Calcium 10 MG TAB PO SCH (20:59)
[2020-06-28] MEDS: Apixaban 5 MG TAB PO SCH ×2 (09:28→21:10)
[2020-06-28] MEDS: Furosemide 40 MG TAB PO SCH (09:28)
[2020-06-28] MEDS: Finasteride 5 MG TAB PO SCH (09:28)
[2020-06-28] MEDS: Famotidine 20 MG TAB PO SCH ×2 (09:28→21:10)
[2020-06-28] MEDS: Sacubitril 49 MG/Valsartan 51 MG TABLET PO SCH ×2 (09:28→21:09)
[2020-06-28] MEDS: Spironolactone 25 MG TAB PO SCH (09:28)
[2020-06-28] MEDS: Carvedilol 6.25 MG TAB PO SCH ×2 (09:28→17:09)
[2020-06-28] MEDS: Acetaminophen 325 MG TAB PO PRN ×2 (09:34→18:30)
[2020-06-28] MEDS: Atorvastatin Calcium 10 MG TAB PO SCH (21:09)
[2020-06-29] MEDS: Finasteride 5 MG TAB PO SCH (10:41)
[2020-06-29] MEDS: Apixaban 5 MG TAB PO SCH ×2 (10:41→20:30)
[2020-06-29] MEDS: Famotidine 20 MG TAB PO SCH ×2 (10:41→20:29)
[2020-06-29] MEDS: Carvedilol 6.25 MG TAB PO SCH ×2 (10:41→18:35)
[2020-06-29] MEDS: Furosemide 40 MG TAB PO SCH (10:42)
[2020-06-29] MEDS: Spironolactone 25 MG TAB PO SCH (10:42)
[2020-06-29] MEDS: Sacubitril 49 MG/Valsartan 51 MG TABLET PO SCH ×2 (10:42→20:29)
[2020-06-29] MEDS: Atorvastatin Calcium 10 MG TAB PO SCH (20:29)
[2020-06-30] MEDS: Sacubitril 49 MG/Valsartan 51 MG TABLET PO SCH ×2 (08:33→20:16)
[2020-06-30] MEDS: Carvedilol 6.25 MG TAB PO SCH ×2 (08:34→17:28)
[2020-06-30] MEDS: Apixaban 5 MG TAB PO SCH ×2 (08:34→20:17)
[2020-06-30] MEDS: Spironolactone 25 MG TAB PO SCH (08:34)
[2020-06-30] MEDS: Famotidine 20 MG TAB PO SCH ×2 (08:34→20:17)
[2020-06-30] MEDS: Finasteride 5 MG TAB PO SCH (08:34)
[2020-06-30] MEDS: Furosemide 40 MG TAB PO SCH (08:34)
[2020-06-30] MEDS: Acetaminophen 325 MG TAB PO PRN (10:00)
[2020-06-30] MEDS ORDERED: Cyanocobalamin (Vitamin B-12) 1,000 MCG TAB PO SCH (11:15)
[2020-06-30] MEDS ORDERED: Folic Acid 1 MG TAB PO SCH (11:15)
[2020-06-30] MEDS ORDERED: Magnesium Sulfate 2 GM in Sodium Chloride 0.9% 100 ML IVPB SCH (11:15)
[2020-06-30] MEDS ORDERED: Magnesium 2 GM/50 ML 2 GM in Premix Bag 1 BAG IVPB SCH (11:30)
[2020-06-30] MEDS: Atorvastatin Calcium 10 MG TAB PO SCH (20:17)
[2020-07-01] MEDS: Famotidine 20 MG TAB PO SCH ×2 (10:18→20:26)
[2020-07-01] MEDS: Cyanocobalamin (Vitamin B-12) 1,000 MCG TAB PO SCH (10:19)
[2020-07-01] MEDS: Folic Acid 1 MG TAB PO SCH (10:20)
[2020-07-01] MEDS: Carvedilol 6.25 MG TAB PO SCH ×2 (10:23→17:03)
[2020-07-01] MEDS: Apixaban 5 MG TAB PO SCH ×2 (10:23→20:26)
[2020-07-01] MEDS: Spironolactone 25 MG TAB PO SCH (10:23)
[2020-07-01] MEDS: Finasteride 5 MG TAB PO SCH (10:23)
[2020-07-01] MEDS: Furosemide 40 MG TAB PO SCH (10:23)
[2020-07-01] MEDS: Multivit, Therapeutic 1 TAB PO SCH (10:23)
[2020-07-01] MEDS: Sacubitril 49 MG/Valsartan 51 MG TABLET PO SCH ×2 (10:23→20:26)
[2020-07-01] MEDS: Acetaminophen 325 MG TAB PO PRN (15:07)
[2020-07-01] MEDS: Atorvastatin Calcium 10 MG TAB PO SCH (20:26)
[2020-07-02] MEDS: Carvedilol 6.25 MG TAB PO SCH ×2 (09:16→18:54)
[2020-07-02] MEDS: Spironolactone 25 MG TAB PO SCH (09:17)
[2020-07-02] MEDS: Furosemide 40 MG TAB PO SCH (09:17)
[2020-07-02] MEDS: Apixaban 5 MG TAB PO SCH ×2 (09:17→20:16)
[2020-07-02] MEDS: Folic Acid 1 MG TAB PO SCH (09:18)
[2020-07-02] MEDS: Sacubitril 49 MG/Valsartan 51 MG TABLET PO SCH ×2 (09:18→20:16)
[2020-07-02] MEDS: Famotidine 20 MG TAB PO SCH ×2 (09:18→20:16)
[2020-07-02] MEDS: Finasteride 5 MG TAB PO SCH (09:18)
[2020-07-02] MEDS: Cyanocobalamin (Vitamin B-12) 1,000 MCG TAB PO SCH (09:18)
[2020-07-02] MEDS: Multivit, Therapeutic 1 TAB PO SCH (09:18)
[2020-07-02] MEDS: Atorvastatin Calcium 10 MG TAB PO SCH (20:16)
[2020-07-03] MEDS: Sacubitril 49 MG/Valsartan 51 MG TABLET PO SCH ×2 (08:14→20:19)
[2020-07-03] MEDS: Apixaban 5 MG TAB PO SCH ×2 (08:16→20:20)
[2020-07-03] MEDS: Carvedilol 6.25 MG TAB PO SCH ×2 (08:16→16:49)
[2020-07-03] MEDS: Spironolactone 25 MG TAB PO SCH (08:17)
[2020-07-03] MEDS: Cyanocobalamin (Vitamin B-12) 1,000 MCG TAB PO SCH (08:17)
[2020-07-03] MEDS: Furosemide 40 MG TAB PO SCH (08:17)
[2020-07-03] MEDS: Multivit, Therapeutic 1 TAB PO SCH (08:17)
[2020-07-03] MEDS: Famotidine 20 MG TAB PO SCH ×2 (08:17→20:19)
[2020-07-03] MEDS: Finasteride 5 MG TAB PO SCH (08:18)
[2020-07-03] MEDS: Folic Acid 1 MG TAB PO SCH (08:18)
[2020-07-03] MEDS: Acetaminophen 325 MG TAB PO PRN (16:47)
[2020-07-03] MEDS: HumaLOG 300 UNITS/3 ML VIAL SC PRN (16:54)
[2020-07-03] MEDS: Atorvastatin Calcium 10 MG TAB PO SCH (20:20)
[2020-07-04] MEDS: Famotidine 20 MG TAB PO SCH ×2 (07:50→21:37)
[2020-07-04] MEDS: Cyanocobalamin (Vitamin B-12) 1,000 MCG TAB PO SCH (07:51)
[2020-07-04] MEDS: Carvedilol 6.25 MG TAB PO SCH ×2 (07:51→15:52)
[2020-07-04] MEDS: Sacubitril 49 MG/Valsartan 51 MG TABLET PO SCH ×2 (07:51→21:38)
[2020-07-04] MEDS: Apixaban 5 MG TAB PO SCH ×2 (07:51→21:38)
[2020-07-04] MEDS: Folic Acid 1 MG TAB PO SCH (07:51)
[2020-07-04] MEDS: Multivit, Therapeutic 1 TAB PO SCH (07:51)
[2020-07-04] MEDS: Furosemide 40 MG TAB PO SCH (07:51)
[2020-07-04] MEDS: Spironolactone 25 MG TAB PO SCH (07:51)
[2020-07-04] MEDS: Finasteride 5 MG TAB PO SCH (07:51)
[2020-07-04] MEDS: Acetaminophen 325 MG TAB PO PRN (09:32)
[2020-07-04] MEDS: HumaLOG 300 UNITS/3 ML VIAL SC PRN (12:25)
[2020-07-04] MEDS: Atorvastatin Calcium 10 MG TAB PO SCH (21:38)
[2020-07-05] MEDS: Carvedilol 6.25 MG TAB PO SCH ×2 (07:57→17:31)
[2020-07-05] MEDS: Cyanocobalamin (Vitamin B-12) 1,000 MCG TAB PO SCH (07:57)
[2020-07-05] MEDS: Famotidine 20 MG TAB PO SCH ×2 (07:57→21:20)
[2020-07-05] MEDS: Furosemide 40 MG TAB PO SCH (07:57)
[2020-07-05] MEDS: Apixaban 5 MG TAB PO SCH ×2 (07:57→21:21)
[2020-07-05] MEDS: Spironolactone 25 MG TAB PO SCH (07:57)
[2020-07-05] MEDS: Sacubitril 49 MG/Valsartan 51 MG TABLET PO SCH ×2 (07:58→21:21)
[2020-07-05] MEDS: Folic Acid 1 MG TAB PO SCH (07:58)
[2020-07-05] MEDS: Multivit, Therapeutic 1 TAB PO SCH (07:58)
[2020-07-05] MEDS: Finasteride 5 MG TAB PO SCH (07:58)
[2020-07-05] MEDS: Atorvastatin Calcium 10 MG TAB PO SCH (21:21)
[2020-07-05] MEDS ORDERED: diphenhydrAMINE 50 MG/ML VIAL IM SCH (21:30)
[2020-07-06 05:15] VITALS: BMI 32.7
[2020-07-06] MEDS: Spironolactone 25 MG TAB PO SCH (07:53)
[2020-07-06] MEDS: Apixaban 5 MG TAB PO SCH (07:53)
[2020-07-06] MEDS: Cyanocobalamin (Vitamin B-12) 1,000 MCG TAB PO SCH (07:53)
[2020-07-06] MEDS: Famotidine 20 MG TAB PO SCH (07:53)
[2020-07-06] MEDS: Furosemide 40 MG TAB PO SCH (07:53)
[2020-07-06] MEDS: Carvedilol 6.25 MG TAB PO SCH ×2 (07:53→17:46)
[2020-07-06] MEDS: Finasteride 5 MG TAB PO SCH (07:53)
[2020-07-06] MEDS: Multivit, Therapeutic 1 TAB PO SCH (07:54)
[2020-07-06] MEDS: Folic Acid 1 MG TAB PO SCH (07:54)
[2020-07-06] MEDS: Sacubitril 49 MG/Valsartan 51 MG TABLET PO SCH (07:55)
[2020-07-06 08:08] VITALS: TEMP 97.7
[2020-07-06 16:48] VITALS: BP 106/67
== END 2020-07-06 18:59 | disposition home or self-care (01) | DRG 280 ==
LOC: ERS 13:25 → ERHOLD 17:02 → 2NO 06-10 01:31 → OBSVTOIN 06-10 17:23 → T4-B 06-28 18:02
PROVIDERS: ADMIT Internal Medicine; ATTEND Internal Medicine
PROC: 0T9B8ZZ Drainage of Bladder, Via Natural or Artificial Opening Endoscopic (ICD-10-PCS; principal; 2020-06-12)
PROC: 0T9B8ZZ Drainage of Bladder, Via Natural or Artificial Opening Endoscopic (ICD-10-PCS; 2020-06-25)
DX: I42.0 Dilated cardiomyopathy (principal); I21.A1 Myocardial infarction type 2; I50.23 Acute on chronic systolic (congestive) heart failure; G93.41 Metabolic encephalopathy; L97.919 Non-pressure chronic ulcer of unspecified part of right lower leg with unspecified severity; L97.929 Non-pressure chronic ulcer of unspecified part of left lower leg with unspecified severity; I48.20 Chronic atrial fibrillation, unspecified; D61.818 Other pancytopenia; N17.9 Acute kidney failure, unspecified; E87.1 Hypo-osmolality and hyponatremia; I42.8 Other cardiomyopathies; Z20.822 Contact with and (suspected) exposure to COVID-19; E11.22 Type 2 diabetes mellitus with diabetic chronic kidney disease; I49.3 Ventricular premature depolarization; E78.5 Hyperlipidemia, unspecified; F17.220 Nicotine dependence, chewing tobacco, uncomplicated; G47.33 Obstructive sleep apnea (adult) (pediatric); I27.20 Pulmonary hypertension, unspecified; I08.1 Rheumatic disorders of both mitral and tricuspid valves; N50.89 Other specified disorders of the male genital organs; L30.4 Erythema intertrigo; N18.30 Chronic kidney disease, stage 3 unspecified; D63.1 Anemia in chronic kidney disease; I12.9 Hypertensive chronic kidney disease with stage 1 through stage 4 chronic kidney disease, or unspecified chronic kidney disease; N40.1 Benign prostatic hyperplasia with lower urinary tract symptoms; R33.8 Other retention of urine; G93.89 Other specified disorders of brain; E66.01 Morbid (severe) obesity due to excess calories; R00.1 Bradycardia, unspecified; Z79.84 Long term (current) use of oral hypoglycemic drugs; Z79.01 Long term (current) use of anticoagulants; Z79.899 Other long term (current) drug therapy; Z90.49 Acquired absence of other specified parts of digestive tract; Z68.32 Body mass index [BMI] 32.0-32.9, adult; E11.622 Type 2 diabetes mellitus with other skin ulcer; L98.499 Non-pressure chronic ulcer of skin of other sites with unspecified severity; E83.42 Hypomagnesemia; I87.8 Other specified disorders of veins; E78.2 Mixed hyperlipidemia
CPT/HCPCS: 36415; 36416; 51102; 70450; 71045; 77002; 80048; 80053; 81001; 82553; 82607; 82746; 83735; 83880; 84100; 84443; 84484; 85025; 85027; 85379; 85610; 85730; 87040; 87635; 93005; 93306; 93970; 95712; 95819; 95957; 96374; 96376; C2627; G0378; J1200; J1650; J1815; J1940; J2543; J2704; J3010; J3475; J3490; U0002; U0003; U0005

== ENCOUNTER 2021-02-07 17:37 | Inpatient (IN) | payer MEDICARE ==
[2021-02-07 18:45] LABS: #Eosinphils 0.1 thou/uL (0.0-0.7); #Lymphocytes 1.2 thou/uL (1.20-3.40); #Monocytes 0.3 thou/uL (0.11-0.59); #Neutrophils 1.8 thou/uL (1.40-6.50); %Eosinophils 3.5 % (0.0-10.0); %Lymphocytes 34.8 % (21.0-51.0); %Neutrophils 52.7 % (42.0-75.0); Mean Corpuscular HGB CONC 33.3 g/dL (32.0-36.0); Mean Corpuscular Hemoglobin 31.4 pg (27.0-31.0); Mean Corpuscular Volume 94.4 fL (78.0-98.0); Mean Platelet Volume 9.1 fL (7.4-10.4); Platelet Count 112 thou/uL (130-400); RBC Distribution Width 19.1 % (11.5-14.5); Red Blood Cell (RBC) Count 3.17 mill/uL (4.70-6.10); White Blood Cell (WBC) Count 3.4 thou/uL (4.8-10.8)
[2021-02-07 19:02] LABS: Anisocytosis SLIGHT = 6-15 cells (100X) (0-5/hpf); MDiff Complete? YES; Ovalocytes SLIGHT = 2-5 cells (100X) (0-1/hpf); Platelet Morphology Comment Appears Decreased; Polychromasia SLIGHT = 2-3 cells (100X) (0-2/hpf); Schistocytes SLIGHT = 2-5 cells (100X) (0-1/hpf); Tear Drops SLIGHT = 2-5 cells (100X) (0-1/hpf)
[2021-02-07 19:02] LABS: Bacteria/HPF 1+ HPF (None Seen); Bilirubin Negative (Negative); Blood, Urine 1+ (Negative); Clarity Turbid (Clear); Glucose, Urine (Dipstick) 100 mg/dL (Negative); Ketone, Urine Negative (Negative); Leukocyte 250 Leu/uL (Negative); Nitrite Negative (Negative); Protein, Urine (Dipstick) 20 mg/dL (Neg-Trace); RBC/HPF 0-3 HPF (0-3); Specific Gravity, Urine 1.011 (1.002-1.036); Squamous Epithelial None Seen HPF (0-3); Triple Phosphate Crystal 1+ HPF (None Seen); Urobilinogen Normal mg/dL (Less than 2); pH, Urine 8.5 (5.0-9.0)
[2021-02-07 19:06] LABS: ALT (SGPT) 9 U/L (8-55); AST (SGOT) 17 U/L (5-34); Albumin 3.8 g/dL (3.4-4.8); Alkaline Phosphatase 88 U/L (40-110); Anion Gap 14 mmol/L (10-20); BUN (Urea Nitrogen) 47 mg/dL (8.4-25.7); Bilirubin, Total 0.6 mg/dL (0.2-1.2); Calc. Creatinine Clearance 0 mL/min (70-130); Carbon Dioxide 27 mmol/L (23-31); Chloride 99 mmol/L (98-107); Globulin 2.9 g/dL (2.4-3.5); Glucose 115 mg/dL (83-110); Potassium 4.4 mmol/L (3.5-5.1); Protein, Total 6.7 g/dL (5.8-8.1); Sodium 136 mmol/L (136-145)
[2021-02-07] MEDS ORDERED: cefTRIAXone\\ROCEPHIN 2 GM VIAL ONE (19:31)
[2021-02-07] MEDS ORDERED: HumaLOG 300 UNITS/3 ML VIAL SC PRN ×2 (20:17)
[2021-02-07] MEDS ORDERED: Dextrose 50% Abboject 50 ML SYRINGE SLOW IVP PRN (20:17)
[2021-02-07] MEDS ORDERED: Dextrose 5% in Water 1,000 ML IV PRN (20:17)
[2021-02-07] MEDS ORDERED: Acetaminophen 325 MG TAB PO PRN (20:18)
[2021-02-07] MEDS ORDERED: Acetaminophen 650 MG Suppository PR PRN (20:18)
[2021-02-07] MEDS ORDERED: Senokot S 8.6-50 MG TAB PO PRN (20:18)
[2021-02-07] MEDS ORDERED: Ondansetron PF 4 MG/2 ML Vial IVP PRN (20:18)
[2021-02-07] MEDS ORDERED: Ondansetron ODT 4 MG TAB PO PRN (20:18)
[2021-02-07] MEDS ORDERED: Sodium Chloride 0.9% 1,000 ML IV SCH (21:30)
[2021-02-07 21:38] LABS: Hemoglobin A1c 5.9 % (4.0-6.0)
[2021-02-07 23:19] VITALS: BMI 31.1
[2021-02-08 05:50] LABS: #Eosinphils 0.1 thou/uL (0.0-0.7); #Lymphocytes 1.3 thou/uL (1.20-3.40); #Monocytes 0.3 thou/uL (0.11-0.59); #Neutrophils 1.1 thou/uL (1.40-6.50); %Basophils 0.1 % (0.0-1.0); %Eosinophils 3.7 % (0.0-10.0); %Lymphocytes 44.5 % (21.0-51.0); %Monocytes 11.6 % (0.0-10.0); Hemoglobin 9.8 g/dL (14.0-18.0); Mean Corpuscular HGB CONC 34.1 g/dL (32.0-36.0); Mean Corpuscular Hemoglobin 32.3 pg (27.0-31.0); Mean Corpuscular Volume 94.7 fL (78.0-98.0); Mean Platelet Volume 9.4 fL (7.4-10.4); Platelet Count 98 thou/uL (130-400); RBC Distribution Width 18.7 % (11.5-14.5); Red Blood Cell (RBC) Count 3.03 mill/uL (4.70-6.10); White Blood Cell (WBC) Count 2.8 thou/uL (4.8-10.8)
[2021-02-08 05:59] LABS: Anion Gap 15 mmol/L (10-20); BUN (Urea Nitrogen) 43 mg/dL (8.4-25.7); Calc. Creatinine Clearance 46 mL/min (70-130); Calcium 8.8 mg/dL (7.8-10.44); Carbon Dioxide 26 mmol/L (23-31); Chloride 104 mmol/L (98-107); Glucose 100 mg/dL (83-110); Potassium 3.8 mmol/L (3.5-5.1); Sodium 141 mmol/L (136-145)
[2021-02-08] MEDS ORDERED: Apixaban 5 MG TAB PO SCH (09:00)
[2021-02-08 12:10] LABS: SARS-CoV-2 PCR by NAA Not Detected (NotDetected)
[2021-02-08] MEDS: Apixaban 5 MG TAB PO SCH (20:00)
[2021-02-08] MEDS ORDERED: cefTRIAXone\\ROCEPHIN 1 GM in Sodium Chloride 0.9% 100 ML IVPB SCH (20:00)
[2021-02-08] MEDS ORDERED: Atorvastatin Calcium 10 MG TAB PO SCH (21:00)
[2021-02-08] MEDS: Carvedilol 3.125 MG TAB PO SCH (21:26)
[2021-02-09 05:13] LABS: Anion Gap 14 mmol/L (10-20); BUN (Urea Nitrogen) 37 mg/dL (8.4-25.7); Calc. Creatinine Clearance 52 mL/min (70-130); Calcium 9.3 mg/dL (7.8-10.44); Carbon Dioxide 25 mmol/L (23-31); Chloride 105 mmol/L (98-107); Glucose 107 mg/dL (83-110); Potassium 3.8 mmol/L (3.5-5.1); Sodium 140 mmol/L (136-145)
[2021-02-09] MEDS ORDERED: Cyanocobalamin (Vitamin B-12) 1,000 MCG TAB PO SCH (09:00)
[2021-02-09] MEDS ORDERED: Folic Acid 1 MG TAB PO SCH (09:00)
[2021-02-09] MEDS: Apixaban 5 MG TAB PO SCH (09:22)
[2021-02-09] MEDS: Carvedilol 3.125 MG TAB PO SCH (13:29)
[2021-02-09 16:03] VITALS: BP 115/80; TEMP 98.4
== END 2021-02-09 17:08 | disposition home or self-care (01) | DRG 698 ==
LOC: ERS 17:37 → 2SE 19:41 → OBSVTOIN 02-08 08:50 → 2NO 02-08 18:28
PROVIDERS: ADMIT Internal Medicine; ATTEND Internal Medicine
DX: T83.518A Infection and inflammatory reaction due to other urinary catheter, initial encounter (principal); A41.9 Sepsis, unspecified organism; N17.9 Acute kidney failure, unspecified; I50.32 Chronic diastolic (congestive) heart failure; I48.20 Chronic atrial fibrillation, unspecified; I42.9 Cardiomyopathy, unspecified; I13.0 Hypertensive heart and chronic kidney disease with heart failure and stage 1 through stage 4 chronic kidney disease, or unspecified chronic kidney disease; D61.818 Other pancytopenia; N39.0 Urinary tract infection, site not specified; Z20.822 Contact with and (suspected) exposure to COVID-19; I95.2 Hypotension due to drugs; I25.10 Atherosclerotic heart disease of native coronary artery without angina pectoris; T44.7X5A Adverse effect of beta-adrenoreceptor antagonists, initial encounter; T46.5X5A Adverse effect of other antihypertensive drugs, initial encounter; M10.9 Gout, unspecified; E78.00 Pure hypercholesterolemia, unspecified; I87.2 Venous insufficiency (chronic) (peripheral); E66.01 Morbid (severe) obesity due to excess calories; N40.1 Benign prostatic hyperplasia with lower urinary tract symptoms; R33.8 Other retention of urine; N18.2 Chronic kidney disease, stage 2 (mild); E11.22 Type 2 diabetes mellitus with diabetic chronic kidney disease; E78.2 Mixed hyperlipidemia; N18.30 Chronic kidney disease, stage 3 unspecified; D63.1 Anemia in chronic kidney disease; K21.9 Gastro-esophageal reflux disease without esophagitis; I27.20 Pulmonary hypertension, unspecified; E78.5 Hyperlipidemia, unspecified; Z95.810 Presence of automatic (implantable) cardiac defibrillator; Z68.31 Body mass index [BMI] 31.0-31.9, adult; Z79.899 Other long term (current) drug therapy; Z79.84 Long term (current) use of oral hypoglycemic drugs; Z79.01 Long term (current) use of anticoagulants; Y84.6 Urinary catheterization as the cause of abnormal reaction of the patient, or of later complication, without mention of misadventure at the time of the procedure
CPT/HCPCS: 36415; 36416; 71045; 80048; 80053; 81003; 81015; 83036; 83880; 84484; 85025; 87077; 87086; 87186; 93005; 96365; G0378; J0696; J3490; J7050; U0003; U0005

== ENCOUNTER 2023-01-16 19:00 | Inpatient (IN) | payer MEDICARE ==
[2023-01-16 19:50] LABS: #Eosinphils 0.1 thou/uL (0.0-0.7); #Monocytes 0.5 thou/uL (0.11-0.59); #Neutrophils 3.5 thou/uL (1.40-6.50); %Basophils 0.4 % (0.0-1.0); %Eosinophils 2.2 % (0.0-10.0); %Lymphocytes 16.5 % (21.0-51.0); %Monocytes 10.3 % (0.0-10.0); %Neutrophils 70.4 % (42.0-75.0); Hematocrit 24.1 % (42.0-52.0); Hemoglobin 6.9 g/dL (14.0-18.0); Mean Corpuscular HGB CONC 28.6 g/dL (32.0-36.0); Mean Corpuscular Hemoglobin 22.6 pg (27.0-31.0); Mean Platelet Volume 10.8 fL (7.4-10.4); Platelet Count 159 10x3/uL (130-400); RBC Distribution Width 18.2 % (11.5-14.5); Red Blood Cell (RBC) Count 3.05 mill/uL (4.70-6.10)
[2023-01-16 20:20] LABS: ALT (SGPT) 9 U/L (8-55); AST (SGOT) 17 U/L (5-34); Albumin 3.9 g/dL (3.4-4.8); Alkaline Phosphatase 114 U/L (40-110); Anion Gap 14 mmol/L (10-20); BUN (Urea Nitrogen) 46 mg/dL (8.4-25.7); Bilirubin, Total 0.5 mg/dL (0.2-1.2); Calc. Creatinine Clearance 0 mL/min (70-130); Calcium 9.2 mg/dL (7.8-10.44); Carbon Dioxide 24 mmol/L (23-31); Chloride 100 mmol/L (98-107); Estimated GFR 27; Globulin 3.4 g/dL (2.4-3.5); Glucose 110 mg/dL (83-110); Potassium 4.8 mmol/L (3.5-5.1); Protein, Total 7.3 g/dL (5.8-8.1); Sodium 133 mmol/L (136-145)
[2023-01-16] MEDS ORDERED: Ondansetron PF 4 MG/2 ML Vial IVP PRN (22:03)
[2023-01-16] MEDS ORDERED: Acetaminophen 325 MG TAB PO PRN (22:03)
[2023-01-16] MEDS ORDERED: HumaLOG 300 UNITS/3 ML VIAL SC PRN (22:07)
[2023-01-16] MEDS ORDERED: Dextrose 5% in Water 1,000 ML IV PRN (22:07)
[2023-01-16] MEDS ORDERED: Glucagon 1 MG/ML KIT IM PRN (22:07)
[2023-01-16] MEDS ORDERED: Dextrose 50% Abboject 50 ML SYRINGE SLOW IVP PRN (22:07)
[2023-01-16] MEDS ORDERED: Furosemide 20 MG/2 ML VIAL SLOW IVP SCH (22:30)
[2023-01-16] MEDS ORDERED: Pantoprazole 40 MG VIAL IVP SCH (22:30)
[2023-01-16 23:52] LABS: Iron 20 ug/dL (65-175); Iron Binding Capacity, Total 425 mcg/dL (261-462)
[2023-01-17] MEDS ORDERED: Furosemide 20 MG/2 ML VIAL SLOW IVP SCH (01:30)
[2023-01-17 04:21] LABS: #Eosinphils 0.1 thou/uL (0.0-0.7); #Monocytes 0.4 thou/uL (0.11-0.59); #Neutrophils 3.1 thou/uL (1.40-6.50); %Basophils 0.7 % (0.0-1.0); %Eosinophils 2.4 % (0.0-10.0); %Lymphocytes 17.7 % (21.0-51.0); %Monocytes 9.3 % (0.0-10.0); %Neutrophils 69.2 % (42.0-75.0); Hematocrit 24.5 % (42.0-52.0); Hemoglobin 7.3 g/dL (14.0-18.0); Mean Corpuscular HGB CONC 29.8 g/dL (32.0-36.0); Mean Corpuscular Volume 80.6 fl (78.0-98.0); Mean Platelet Volume 10.9 fL (7.4-10.4); Platelet Count 154 10x3/uL (130-400); RBC Distribution Width 17.7 % (11.5-14.5); Red Blood Cell (RBC) Count 3.04 mill/uL (4.70-6.10); White Blood Cell (WBC) Count 4.5 10x3/uL (4.8-10.8)
[2023-01-17 04:39] LABS: INR-International Normal Ratio 2.1; PTT 37.8 sec (22.9-36.1); Prothrombin Time 24.7 sec (12.0-14.7)
[2023-01-17 04:44] LABS: Anion Gap 16 mmol/L (10-20); BUN (Urea Nitrogen) 46 mg/dL (8.4-25.7); Calc. Creatinine Clearance 39 mL/min (70-130); Calcium 9.2 mg/dL (7.8-10.44); Carbon Dioxide 25 mmol/L (23-31); Chloride 100 mmol/L (98-107); Estimated GFR 29; Glucose 109 mg/dL (83-110); Potassium 4.9 mmol/L (3.5-5.1); Sodium 136 mmol/L (136-145)
[2023-01-17 05:01] LABS: SARS-CoV-2 NAA Rapid Test Not Detected (NotDetected)
[2023-01-17] MEDS: Furosemide 20 MG/2 ML VIAL SLOW IVP SCH ×2 (06:53→14:45)
[2023-01-17] MEDS ORDERED: Pantoprazole 40 MG VIAL IVP SCH (09:00)
[2023-01-17 10:57] LABS: Hematocrit 24.1 % (42.0-52.0); Hemoglobin 7.2 g/dL (14.0-18.0)
[2023-01-17] MEDS: Carvedilol 3.125 MG TAB PO SCH (17:39)
[2023-01-17 19:21] LABS: Hematocrit 27.2 % (42.0-52.0)
[2023-01-17] MEDS: Atorvastatin Calcium 10 MG TAB PO SCH (21:56)
[2023-01-18 04:22] LABS: #Eosinphils 0.1 thou/uL (0.0-0.7); #Monocytes 0.5 thou/uL (0.11-0.59); #Neutrophils 2.3 thou/uL (1.40-6.50); %Basophils 0.5 % (0.0-1.0); %Eosinophils 1.9 % (0.0-10.0); %Lymphocytes 21.6 % (21.0-51.0); %Monocytes 12.4 % (0.0-10.0); %Neutrophils 63.3 % (42.0-75.0); Hematocrit 25.7 % (42.0-52.0); Hemoglobin 7.7 g/dL (14.0-18.0); Mean Corpuscular Hemoglobin 23.9 pg (27.0-31.0); Mean Corpuscular Volume 79.8 fl (78.0-98.0); Mean Platelet Volume 10.7 fL (7.4-10.4); Platelet Count 150 10x3/uL (130-400); Red Blood Cell (RBC) Count 3.22 mill/uL (4.70-6.10); White Blood Cell (WBC) Count 3.7 10x3/uL (4.8-10.8)
[2023-01-18 04:44] LABS: Anion Gap 15 mmol/L (10-20); BUN (Urea Nitrogen) 39 mg/dL (8.4-25.7); Calc. Creatinine Clearance 43 mL/min (70-130); Calcium 9.4 mg/dL (7.8-10.44); Carbon Dioxide 26 mmol/L (23-31); Chloride 96 mmol/L (98-107); Estimated GFR 35; Glucose 98 mg/dL (83-110); Potassium 4.4 mmol/L (3.5-5.1); Sodium 133 mmol/L (136-145)
[2023-01-18] MEDS: Furosemide 20 MG/2 ML VIAL SLOW IVP SCH ×2 (06:37→16:25)
[2023-01-18] MEDS ORDERED: Polyethylene Glycol 3350 17 GM Packet PO SCH (09:00)
[2023-01-18] MEDS: Finasteride 5 MG TAB PO SCH (09:27)
[2023-01-18] MEDS: Carvedilol 3.125 MG TAB PO SCH ×2 (09:28→16:21)
[2023-01-18] MEDS: Sertraline 25 MG TAB PO SCH (09:28)
[2023-01-18] MEDS ORDERED: Bisacodyl 10 MG SUPP PR SCH (13:30)
[2023-01-18] MEDS: Atorvastatin Calcium 10 MG TAB PO SCH (21:48)
[2023-01-18] MEDS: Polyethylene Glycol 3350 17 GM Packet PO SCH (21:48)
[2023-01-19 04:16] LABS: #Eosinphils 0.2 thou/uL (0.0-0.7); #Monocytes 0.6 thou/uL (0.11-0.59); #Neutrophils 2.4 thou/uL (1.40-6.50); %Basophils 0.5 % (0.0-1.0); %Eosinophils 3.9 % (0.0-10.0); %Lymphocytes 27.7 % (21.0-51.0); %Monocytes 13.4 % (0.0-10.0); %Neutrophils 54.3 % (42.0-75.0); Hematocrit 26.8 % (42.0-52.0); Hemoglobin 8.1 g/dL (14.0-18.0); Mean Corpuscular HGB CONC 30.2 g/dL (32.0-36.0); Mean Corpuscular Hemoglobin 23.8 pg (27.0-31.0); Mean Corpuscular Volume 78.8 fl (78.0-98.0); Mean Platelet Volume 10.3 fL (7.4-10.4); Platelet Count 166 10x3/uL (130-400); RBC Distribution Width 18.2 % (11.5-14.5); White Blood Cell (WBC) Count 4.4 10x3/uL (4.8-10.8)
[2023-01-19 04:48] LABS: Anion Gap 16 mmol/L (10-20); BUN (Urea Nitrogen) 40 mg/dL (8.4-25.7); Calc. Creatinine Clearance 44 mL/min (70-130); Calcium 9.3 mg/dL (7.8-10.44); Carbon Dioxide 27 mmol/L (23-31); Chloride 94 mmol/L (98-107); Estimated GFR 37; Glucose 114 mg/dL (83-110); Potassium 4.2 mmol/L (3.5-5.1); Sodium 133 mmol/L (136-145)
[2023-01-19] MEDS: Furosemide 20 MG/2 ML VIAL SLOW IVP SCH (06:39)
[2023-01-19] MEDS: Polyethylene Glycol 3350 17 GM Packet PO SCH ×2 (08:10→20:34)
[2023-01-19] MEDS: Empagliflozin 10 MG TAB PO SCH (08:10)
[2023-01-19] MEDS: Carvedilol 6.25 MG TAB PO SCH ×2 (08:11→15:48)
[2023-01-19] MEDS: Spironolactone 25 MG TAB PO SCH (08:11)
[2023-01-19] MEDS: Finasteride 5 MG TAB PO SCH (08:11)
[2023-01-19] MEDS: Sertraline 25 MG TAB PO SCH (08:11)
[2023-01-19] MEDS ORDERED: Bisacodyl 10 MG SUPP PR PRN (09:24)
[2023-01-19] MEDS: Furosemide 20 MG TAB PO SCH (15:48)
[2023-01-19] MEDS: Atorvastatin Calcium 10 MG TAB PO SCH (20:34)
[2023-01-19] MEDS: GoLYTELY 4,000 ml Bottle PO SCH (23:01)
[2023-01-20] MEDS: GoLYTELY 4,000 ml Bottle PO SCH (03:32)
[2023-01-20 04:07] LABS: #Eosinphils 0.2 thou/uL (0.0-0.7); #Monocytes 0.6 thou/uL (0.11-0.59); #Neutrophils 2.7 thou/uL (1.40-6.50); %Basophils 0.6 % (0.0-1.0); %Eosinophils 4.5 % (0.0-10.0); %Monocytes 12.4 % (0.0-10.0); %Neutrophils 53.1 % (42.0-75.0); Hematocrit 28.6 % (42.0-52.0); Hemoglobin 8.5 g/dL (14.0-18.0); Mean Corpuscular HGB CONC 29.7 g/dL (32.0-36.0); Mean Corpuscular Hemoglobin 23.5 pg (27.0-31.0); Mean Platelet Volume 10.5 fL (7.4-10.4); Platelet Count 175 10x3/uL (130-400); RBC Distribution Width 18.5 % (11.5-14.5); Red Blood Cell (RBC) Count 3.62 mill/uL (4.70-6.10); White Blood Cell (WBC) Count 5.1 10x3/uL (4.8-10.8)
[2023-01-20] MEDS: Carvedilol 6.25 MG TAB PO SCH ×2 (07:53→17:59)
[2023-01-20] MEDS: Spironolactone 25 MG TAB PO SCH (07:53)
[2023-01-20] MEDS: Finasteride 5 MG TAB PO SCH (07:54)
[2023-01-20] MEDS: Furosemide 20 MG TAB PO SCH ×2 (07:54→13:44)
[2023-01-20] MEDS: Polyethylene Glycol 3350 17 GM Packet PO SCH ×2 (07:54→20:34)
[2023-01-20 08:30] LABS: Anion Gap 17 mmol/L (10-20); Calc. Creatinine Clearance 46 mL/min (70-130); Calcium 9.1 mg/dL (7.8-10.44); Carbon Dioxide 29 mmol/L (23-31); Chloride 93 mmol/L (98-107); Glucose 116 mg/dL (83-110); Potassium 4.6 mmol/L (3.5-5.1); Sodium 134 mmol/L (136-145)
[2023-01-20 08:31] LABS: BUN (Urea Nitrogen) 42 mg/dL (8.4-25.7); Estimated GFR 38
[2023-01-20] MEDS ORDERED: GoLYTELY 4,000 ml Bottle PO SCH (11:15)
[2023-01-20] MEDS: Sertraline 25 MG TAB PO SCH (11:18)
[2023-01-20] MEDS: Empagliflozin 10 MG TAB PO SCH (11:18)
[2023-01-20] MEDS: Atorvastatin Calcium 10 MG TAB PO SCH (20:34)
[2023-01-21 04:51] LABS: #Eosinphils 0.2 thou/uL (0.0-0.7); #Monocytes 0.5 thou/uL (0.11-0.59); #Neutrophils 3.5 thou/uL (1.40-6.50); %Basophils 0.6 % (0.0-1.0); %Eosinophils 3.2 % (0.0-10.0); %Lymphocytes 23.2 % (21.0-51.0); %Monocytes 8.4 % (0.0-10.0); %Neutrophils 64.4 % (42.0-75.0); Hematocrit 30.3 % (42.0-52.0); Hemoglobin 8.9 g/dL (14.0-18.0); Mean Corpuscular HGB CONC 29.4 g/dL (32.0-36.0); Mean Corpuscular Hemoglobin 23.5 pg (27.0-31.0); Mean Corpuscular Volume 80.2 fl (78.0-98.0); Mean Platelet Volume 10.5 fL (7.4-10.4); Platelet Count 184 10x3/uL (130-400); RBC Distribution Width 18.7 % (11.5-14.5); Red Blood Cell (RBC) Count 3.78 mill/uL (4.70-6.10); White Blood Cell (WBC) Count 5.4 10x3/uL (4.8-10.8)
[2023-01-21 05:08] LABS: INR-International Normal Ratio 1.2; Prothrombin Time 15.7 sec (12.0-14.7)
[2023-01-21 05:34] LABS: Anion Gap 19 mmol/L (10-20); BUN (Urea Nitrogen) 36 mg/dL (8.4-25.7); Calc. Creatinine Clearance 51 mL/min (70-130); Calcium 9.2 mg/dL (7.8-10.44); Carbon Dioxide 25 mmol/L (23-31); Chloride 95 mmol/L (98-107); Estimated GFR 43; Glucose 104 mg/dL (83-110); Potassium 3.8 mmol/L (3.5-5.1); Sodium 135 mmol/L (136-145)
[2023-01-21] MEDS ORDERED: Vasopressin 20 UNITS/ML VIAL ONE (09:09)
[2023-01-21] MEDS ORDERED: Lidocaine 1% PF 5 ML VIAL ONE (09:24)
[2023-01-21] MEDS ORDERED: PROPOFOL 200 MG/20 ML VIAL ONE (09:24)
[2023-01-21] MEDS ORDERED: Promethazine HCl 25 MG/ML VIAL IM PRN (09:50)
[2023-01-21] MEDS ORDERED: Ondansetron HCl/PF 4 MG/2 ML Vial IVP PRN (09:50)
[2023-01-21] MEDS: Carvedilol 6.25 MG TAB PO SCH ×2 (12:59→16:44)
[2023-01-21] MEDS: Furosemide 20 MG TAB PO SCH ×2 (12:59→13:22)
[2023-01-21] MEDS: Polyethylene Glycol 3350 17 GM Packet PO SCH ×2 (12:59→21:35)
[2023-01-21] MEDS: Sertraline 25 MG TAB PO SCH (13:21)
[2023-01-21] MEDS: Spironolactone 25 MG TAB PO SCH (13:21)
[2023-01-21] MEDS: Finasteride 5 MG TAB PO SCH (13:22)
[2023-01-21] MEDS: Empagliflozin 10 MG TAB PO SCH (13:22)
[2023-01-21] MEDS ORDERED: Iopamidol 370 76% 100 ML VIAL ONE (15:59)
[2023-01-21] MEDS: Atorvastatin Calcium 10 MG TAB PO SCH (21:35)
[2023-01-22 05:28] LABS: #Eosinphils 0.1 thou/uL (0.0-0.7); #Monocytes 0.4 thou/uL (0.11-0.59); #Neutrophils 6.3 thou/uL (1.40-6.50); %Basophils 0.3 % (0.0-1.0); %Eosinophils 0.7 % (0.0-10.0); %Lymphocytes 9.9 % (21.0-51.0); %Monocytes 5.5 % (0.0-10.0); %Neutrophils 83.3 % (42.0-75.0); Hematocrit 30.7 % (42.0-52.0); Mean Corpuscular HGB CONC 29.3 g/dL (32.0-36.0); Mean Corpuscular Hemoglobin 23.4 pg (27.0-31.0); Mean Corpuscular Volume 79.7 fl (78.0-98.0); Mean Platelet Volume 10.2 fL (7.4-10.4); Platelet Count 165 10x3/uL (130-400); Red Blood Cell (RBC) Count 3.85 mill/uL (4.70-6.10); White Blood Cell (WBC) Count 7.6 10x3/uL (4.8-10.8)
[2023-01-22 05:51] LABS: ALT (SGPT) 8 U/L (8-55); AST (SGOT) 18 U/L (5-34); Albumin 3.8 g/dL (3.4-4.8); Alkaline Phosphatase 125 U/L (40-110); Anion Gap 16 mmol/L (10-20); BUN (Urea Nitrogen) 34 mg/dL (8.4-25.7); Bilirubin, Total 0.8 mg/dL (0.2-1.2); Calc. Creatinine Clearance 48 mL/min (70-130); Calcium 9.5 mg/dL (7.8-10.44); Carbon Dioxide 26 mmol/L (23-31); Chloride 93 mmol/L (98-107); Estimated GFR 40; Globulin 3.4 g/dL (2.4-3.5); Glucose 138 mg/dL (83-110); Potassium 3.2 mmol/L (3.5-5.1); Protein, Total 7.2 g/dL (5.8-8.1); Sodium 132 mmol/L (136-145)
[2023-01-22] MEDS ORDERED: Potassium Chloride 20 MEQ TAB PO SCH (08:15)
[2023-01-22] MEDS: Spironolactone 25 MG TAB PO SCH (08:48)
[2023-01-22] MEDS: Empagliflozin 10 MG TAB PO SCH (08:48)
[2023-01-22] MEDS: Sertraline 25 MG TAB PO SCH (08:48)
[2023-01-22] MEDS: Finasteride 5 MG TAB PO SCH (08:48)
[2023-01-22] MEDS: Carvedilol 6.25 MG TAB PO SCH ×2 (08:49→15:56)
[2023-01-22] MEDS: Polyethylene Glycol 3350 17 GM Packet PO SCH ×2 (08:50→20:02)
[2023-01-22 09:12] LABS: Free T4 (Free Thyroxine) 0.93 ng/dL (0.70-1.48); Thyroid Stimulating Hormone 1.4441 uIU/mL (0.35-4.94)
[2023-01-22] MEDS: Atorvastatin Calcium 10 MG TAB PO SCH (20:01)
[2023-01-23 05:11] LABS: ALT (SGPT) 9 U/L (8-55); AST (SGOT) 19 U/L (5-34); Albumin 3.6 g/dL (3.4-4.8); Alkaline Phosphatase 105 U/L (40-110); Anion Gap 11 mmol/L (10-20); BUN (Urea Nitrogen) 33 mg/dL (8.4-25.7); Bilirubin, Total 0.6 mg/dL (0.2-1.2); Calc. Creatinine Clearance 53 mL/min (70-130); Calcium 9.4 mg/dL (7.8-10.44); Carbon Dioxide 29 mmol/L (23-31); Chloride 98 mmol/L (98-107); Estimated GFR 44; Globulin 3.2 g/dL (2.4-3.5); Glucose 118 mg/dL (83-110); Potassium 4.3 mmol/L (3.5-5.1); Protein, Total 6.8 g/dL (5.8-8.1); Sodium 134 mmol/L (136-145)
[2023-01-23] MEDS: Carvedilol 6.25 MG TAB PO SCH ×2 (08:06→17:15)
[2023-01-23] MEDS: Empagliflozin 10 MG TAB PO SCH (08:06)
[2023-01-23] MEDS: Finasteride 5 MG TAB PO SCH (08:06)
[2023-01-23] MEDS: Sertraline 25 MG TAB PO SCH (08:06)
[2023-01-23] MEDS: Spironolactone 25 MG TAB PO SCH (08:06)
[2023-01-23] MEDS: Polyethylene Glycol 3350 17 GM Packet PO SCH ×2 (08:07→20:21)
[2023-01-23] MEDS ORDERED: Magnesium Citrate 300 ML BOT PO SCH (13:45)
[2023-01-23] MEDS ORDERED: cefOXitin 2 GM in Sodium Chloride 0.9% 100 ML IVPB SCH (13:45)
[2023-01-23] MEDS: Atorvastatin Calcium 10 MG TAB PO SCH (20:20)
[2023-01-24 05:07] LABS: #Eosinphils 0.1 thou/uL (0.0-0.7); #Monocytes 0.4 thou/uL (0.11-0.59); %Basophils 0.7 % (0.0-1.0); %Eosinophils 3.1 % (0.0-10.0); Hematocrit 26.7 % (42.0-52.0); Hemoglobin 7.9 g/dL (14.0-18.0); Mean Corpuscular HGB CONC 29.6 g/dL (32.0-36.0); Mean Corpuscular Hemoglobin 24.2 pg (27.0-31.0); Mean Corpuscular Volume 81.9 fl (78.0-98.0); Mean Platelet Volume 10.5 fL (7.4-10.4); Platelet Count 145 10x3/uL (130-400); RBC Distribution Width 19.1 % (11.5-14.5); Red Blood Cell (RBC) Count 3.26 mill/uL (4.70-6.10); White Blood Cell (WBC) Count 4.5 10x3/uL (4.8-10.8)
[2023-01-24 05:34] LABS: ALT (SGPT) 9 U/L (8-55); AST (SGOT) 19 U/L (5-34); Albumin 3.6 g/dL (3.4-4.8); Alkaline Phosphatase 101 U/L (40-110); Anion Gap 13 mmol/L (10-20); BUN (Urea Nitrogen) 36 mg/dL (8.4-25.7); Bilirubin, Total 0.4 mg/dL (0.2-1.2); Calc. Creatinine Clearance 56 mL/min (70-130); Calcium 9.2 mg/dL (7.8-10.44); Carbon Dioxide 27 mmol/L (23-31); Chloride 99 mmol/L (98-107); Estimated GFR 46; Globulin 3.2 g/dL (2.4-3.5); Glucose 126 mg/dL (83-110); Potassium 4.7 mmol/L (3.5-5.1); Protein, Total 6.8 g/dL (5.8-8.1); Sodium 134 mmol/L (136-145)
[2023-01-24] MEDS ORDERED: Sodium Chloride 0.9% 1,000 ML IV SCH ×2 (06:00→12:54)
[2023-01-24] MEDS ORDERED: fentaNYL PF 100 MCG/2 ML SYRINGE ONE (07:36)
[2023-01-24] MEDS ORDERED: Phenylephrine 10 MG/ML VIAL ONE (07:36)
[2023-01-24] MEDS ORDERED: Bupivacaine 0.25% HCL 30 ML VIAL ONE ×2 (07:54→13:17)
[2023-01-24] MEDS ORDERED: EPINEPHrine 1 MG/ML AMP ONE (07:54)
[2023-01-24] MEDS ORDERED: Lidocaine 1% MPF 2 ML VIAL ONE (07:59)
[2023-01-24] MEDS ORDERED: Sodium Chloride 0.9% 100 ML ONE (08:00)
[2023-01-24] MEDS ORDERED: cefOXitin 2 GM VIAL ONE (08:00)
[2023-01-24] MEDS: Polyethylene Glycol 3350 17 GM Packet PO SCH (08:08)
[2023-01-24] MEDS: Carvedilol 6.25 MG TAB PO SCH ×2 (08:08→17:08)
[2023-01-24] MEDS: Sertraline 25 MG TAB PO SCH (08:08)
[2023-01-24] MEDS: Empagliflozin 10 MG TAB PO SCH (08:08)
[2023-01-24] MEDS: Spironolactone 25 MG TAB PO SCH (08:08)
[2023-01-24] MEDS: Finasteride 5 MG TAB PO SCH (08:08)
[2023-01-24] MEDS ORDERED: Vasopressin 20 UNITS/ML VIAL ONE (08:15)
[2023-01-24] MEDS ORDERED: Norepinephrine 4 MG/4 ML VIAL ONE (08:15)
[2023-01-24] MEDS ORDERED: Rocuronium Bromide 10 MG/ML (10ML VIAL) ONE (08:22)
[2023-01-24] MEDS ORDERED: NEOSTIGMINE 3 MG/3 ML SYR 3 MG/3 ML SYRINGE ONE (08:22)
[2023-01-24] MEDS ORDERED: PROPOFOL 200 MG/20 ML VIAL ONE (08:22)
[2023-01-24] MEDS ORDERED: Glycopyrrolate 0.2 MG/ML 5 ML SYRINGE ONE (08:22)
[2023-01-24] MEDS ORDERED: Lidocaine 1% PF 5 ML VIAL ONE (08:22)
[2023-01-24] MEDS ORDERED: Promethazine HCl 25 MG/ML VIAL IM PRN (10:51)
[2023-01-24] MEDS ORDERED: Ondansetron HCl/PF 4 MG/2 ML Vial IVP PRN (10:51)
[2023-01-24] MEDS ORDERED: Promethazine HCl 25 MG/ML VIAL ONE (12:22)
[2023-01-24] MEDS ORDERED: Morphine 4 MG/ML VIAL SLOW IVP PRN (12:52)
[2023-01-24] MEDS: Acetaminophen 500 MG TAB PO SCH ×3 (13:00→21:00)
[2023-01-24] MEDS ORDERED: fentaNYL 50 mcg/mL 1 mL Vial ONE ×2 (13:00→13:29)
[2023-01-24] MEDS ORDERED: Dexamethasone 4 mg/ml Vial ONE (13:17)
[2023-01-24] MEDS: cefOXitin 2 GM in Sodium Chloride 0.9% 100 ML IVPB SCH ×2 (17:10→23:55)
[2023-01-24] MEDS: Albumin 25% 25 GM/100 ML BOT IVPB SCH ×2 (18:56→23:55)
[2023-01-24] MEDS ORDERED: Dextrose 5%-Lactated Ringers 1,000 ML IV SCH (20:00)
[2023-01-24] MEDS: Atorvastatin Calcium 10 MG TAB PO SCH (21:00)
[2023-01-24 22:36] LABS: #Monocytes 0.3 thou/uL (0.11-0.59); #Neutrophils 4.7 thou/uL (1.40-6.50); %Basophils 0.2 % (0.0-1.0); %Lymphocytes 7.4 % (21.0-51.0); %Monocytes 5.6 % (0.0-10.0); %Neutrophils 86.6 % (42.0-75.0); Hematocrit 29.3 % (42.0-52.0); Hemoglobin 9.2 g/dL (14.0-18.0); Mean Corpuscular HGB CONC 31.4 g/dL (32.0-36.0); Mean Corpuscular Hemoglobin 25.8 pg (27.0-31.0); Mean Corpuscular Volume 82.3 fl (78.0-98.0); Mean Platelet Volume 9.8 fL (7.4-10.4); Platelet Count 127 10x3/uL (130-400); RBC Distribution Width 18.1 % (11.5-14.5); Red Blood Cell (RBC) Count 3.56 mill/uL (4.70-6.10); White Blood Cell (WBC) Count 5.4 10x3/uL (4.8-10.8)
[2023-01-25 04:10] LABS: #Monocytes 0.3 thou/uL (0.11-0.59); #Neutrophils 4.9 thou/uL (1.40-6.50); %Basophils 0.2 % (0.0-1.0); %Lymphocytes 8.2 % (21.0-51.0); %Monocytes 5.6 % (0.0-10.0); %Neutrophils 85.7 % (42.0-75.0); Hematocrit 26.3 % (42.0-52.0); Hemoglobin 8.2 g/dL (14.0-18.0); Mean Corpuscular HGB CONC 31.2 g/dL (32.0-36.0); Mean Corpuscular Hemoglobin 26.2 pg (27.0-31.0); Mean Platelet Volume 10.4 fL (7.4-10.4); Platelet Count 117 10x3/uL (130-400); RBC Distribution Width 18.4 % (11.5-14.5); Red Blood Cell (RBC) Count 3.13 mill/uL (4.70-6.10); White Blood Cell (WBC) Count 5.8 10x3/uL (4.8-10.8)
[2023-01-25 06:03] LABS: ALT (SGPT) 9 U/L (8-55); AST (SGOT) 15 U/L (5-34); Albumin 3.6 g/dL (3.4-4.8); Alkaline Phosphatase 72 U/L (40-110); Anion Gap 12 mmol/L (10-20); BUN (Urea Nitrogen) 37 mg/dL (8.4-25.7); Calc. Creatinine Clearance 43 mL/min (70-130); Calcium 8.7 mg/dL (7.8-10.44); Carbon Dioxide 24 mmol/L (23-31); Chloride 106 mmol/L (98-107); Estimated GFR 34; Globulin 2.3 g/dL (2.4-3.5); Glucose 207 mg/dL (83-110); Potassium 4.7 mmol/L (3.5-5.1); Protein, Total 5.9 g/dL (5.8-8.1); Sodium 137 mmol/L (136-145)
[2023-01-25] MEDS: Albumin 25% 25 GM/100 ML BOT IVPB SCH ×2 (06:26→12:51)
[2023-01-25] MEDS: Acetaminophen 500 MG TAB PO SCH ×4 (08:46→22:01)
[2023-01-25] MEDS: cefOXitin 2 GM in Sodium Chloride 0.9% 100 ML IVPB SCH ×2 (08:46→16:02)
[2023-01-25] MEDS: Empagliflozin 10 MG TAB PO SCH (08:47)
[2023-01-25] MEDS: Sertraline 25 MG TAB PO SCH (08:48)
[2023-01-25] MEDS: Finasteride 5 MG TAB PO SCH (08:48)
[2023-01-25] MEDS: Carvedilol 6.25 MG TAB PO SCH (09:46)
[2023-01-25] MEDS: Spironolactone 25 MG TAB PO SCH (09:46)
[2023-01-25] MEDS: Dextrose 5%-Lactated Ringers 1,000 ML IV SCH ×2 (10:31→18:31)
[2023-01-25 16:39] LABS: #Monocytes 0.5 thou/uL (0.11-0.59); #Neutrophils 6.4 thou/uL (1.40-6.50); %Lymphocytes 7.4 % (21.0-51.0); %Monocytes 7.2 % (0.0-10.0); %Neutrophils 84.9 % (42.0-75.0); Hematocrit 23.8 % (42.0-52.0); Hemoglobin 7.4 g/dL (14.0-18.0); Mean Corpuscular HGB CONC 31.1 g/dL (32.0-36.0); Mean Corpuscular Hemoglobin 26.3 pg (27.0-31.0); Mean Corpuscular Volume 84.7 fl (78.0-98.0); Mean Platelet Volume 10.8 fL (7.4-10.4); Platelet Count 125 10x3/uL (130-400); RBC Distribution Width 18.8 % (11.5-14.5); Red Blood Cell (RBC) Count 2.81 mill/uL (4.70-6.10); White Blood Cell (WBC) Count 7.5 10x3/uL (4.8-10.8)
[2023-01-25] MEDS: Atorvastatin Calcium 10 MG TAB PO SCH (22:02)
[2023-01-26] MEDS: cefOXitin 2 GM in Sodium Chloride 0.9% 100 ML IVPB SCH (00:05)
[2023-01-26 01:11] LABS: #Monocytes 0.4 thou/uL (0.11-0.59); %Basophils 0.1 % (0.0-1.0); %Lymphocytes 7.3 % (21.0-51.0); %Monocytes 5.6 % (0.0-10.0); %Neutrophils 86.6 % (42.0-75.0); Hemoglobin 7.6 g/dL (14.0-18.0); Mean Corpuscular HGB CONC 31.7 g/dL (32.0-36.0); Mean Corpuscular Hemoglobin 26.9 pg (27.0-31.0); Mean Corpuscular Volume 84.8 fl (78.0-98.0); Mean Platelet Volume 10.6 fL (7.4-10.4); Red Blood Cell (RBC) Count 2.83 mill/uL (4.70-6.10)
[2023-01-26 01:13] LABS: Platelet Count 96 10x3/uL (130-400)
[2023-01-26] MEDS: Dextrose 5%-Lactated Ringers 1,000 ML IV SCH ×4 (04:14→21:25)
[2023-01-26 05:02] LABS: #Monocytes 0.4 thou/uL (0.11-0.59); #Neutrophils 6.1 thou/uL (1.40-6.50); %Basophils 0.1 % (0.0-1.0); %Eosinophils 0.1 % (0.0-10.0); %Lymphocytes 6.7 % (21.0-51.0); %Monocytes 5.8 % (0.0-10.0); %Neutrophils 86.6 % (42.0-75.0); Hematocrit 24.2 % (42.0-52.0); Hemoglobin 7.7 g/dL (14.0-18.0); Mean Corpuscular HGB CONC 31.8 g/dL (32.0-36.0); Mean Corpuscular Hemoglobin 26.7 pg (27.0-31.0); Mean Platelet Volume 11.5 fL (7.4-10.4); RBC Distribution Width 18.4 % (11.5-14.5); Red Blood Cell (RBC) Count 2.88 mill/uL (4.70-6.10); White Blood Cell (WBC) Count 7.1 10x3/uL (4.8-10.8)
[2023-01-26 05:29] LABS: ALT (SGPT) 9 U/L (8-55); AST (SGOT) 17 U/L (5-34); Albumin 3.7 g/dL (3.4-4.8); Alkaline Phosphatase 66 U/L (40-110); Anion Gap 12 mmol/L (10-20); BUN (Urea Nitrogen) 40 mg/dL (8.4-25.7); Calc. Creatinine Clearance 32 mL/min (70-130); Calcium 9.1 mg/dL (7.8-10.44); Carbon Dioxide 24 mmol/L (23-31); Chloride 104 mmol/L (98-107); Estimated GFR 24; Globulin 2.4 g/dL (2.4-3.5); Glucose 166 mg/dL (83-110); Potassium 4.4 mmol/L (3.5-5.1); Protein, Total 6.1 g/dL (5.8-8.1); Sodium 136 mmol/L (136-145)
[2023-01-26 05:47] LABS: Platelet Count 112 10x3/uL (130-400)
[2023-01-26] MEDS: Acetaminophen 500 MG TAB PO SCH ×4 (08:24→20:00)
[2023-01-26] MEDS: Senokot S 8.6-50 MG TAB PO SCH ×2 (08:24→20:00)
[2023-01-26] MEDS: Polyethylene Glycol 3350 17 GM Packet PO SCH (08:26)
[2023-01-26] MEDS: Finasteride 5 MG TAB PO SCH (08:26)
[2023-01-26] MEDS: Sertraline 25 MG TAB PO SCH (08:26)
[2023-01-26 10:06] LABS: Magnesium 2.6 mg/dL (1.6-2.6); Phosphorus 3.2 mg/dL (2.3-4.7)
[2023-01-26 14:11] LABS: #Monocytes 0.6 thou/uL (0.11-0.59); #Neutrophils 8.4 thou/uL (1.40-6.50); %Basophils 0.1 % (0.0-1.0); %Eosinophils 0.1 % (0.0-10.0); %Lymphocytes 7.1 % (21.0-51.0); %Monocytes 6.3 % (0.0-10.0); Hematocrit 29.6 % (42.0-52.0); Hemoglobin 9.2 g/dL (14.0-18.0); Mean Corpuscular HGB CONC 31.1 g/dL (32.0-36.0); Mean Corpuscular Hemoglobin 26.8 pg (27.0-31.0); Mean Corpuscular Volume 86.3 fl (78.0-98.0); Mean Platelet Volume 10.5 fL (7.4-10.4); Platelet Count 131 10x3/uL (130-400); Red Blood Cell (RBC) Count 3.43 mill/uL (4.70-6.10); White Blood Cell (WBC) Count 9.8 10x3/uL (4.8-10.8)
[2023-01-26] MEDS: HumaLOG 300 UNITS/3 ML VIAL SC PRN (16:18)
[2023-01-26] MEDS: Atorvastatin Calcium 10 MG TAB PO SCH (20:01)
[2023-01-26 20:22] LABS: #Monocytes 0.5 thou/uL (0.11-0.59); #Neutrophils 8.3 thou/uL (1.40-6.50); %Basophils 0.2 % (0.0-1.0); %Eosinophils 0.4 % (0.0-10.0); %Lymphocytes 6.7 % (21.0-51.0); %Monocytes 5.2 % (0.0-10.0); %Neutrophils 86.9 % (42.0-75.0); Hematocrit 28.2 % (42.0-52.0); Mean Corpuscular HGB CONC 31.9 g/dL (32.0-36.0); Mean Corpuscular Hemoglobin 27.4 pg (27.0-31.0); Platelet Count 131 10x3/uL (130-400); RBC Distribution Width 17.9 % (11.5-14.5); Red Blood Cell (RBC) Count 3.28 mill/uL (4.70-6.10); White Blood Cell (WBC) Count 9.5 10x3/uL (4.8-10.8)
[2023-01-27] MEDS: Dextrose 5%-Lactated Ringers 1,000 ML IV SCH ×3 (04:17→17:47)
[2023-01-27 04:21] LABS: #Eosinphils 0.1 thou/uL (0.0-0.7); #Monocytes 0.4 thou/uL (0.11-0.59); #Neutrophils 7.1 thou/uL (1.40-6.50); %Basophils 0.1 % (0.0-1.0); %Eosinophils 0.9 % (0.0-10.0); %Lymphocytes 7.3 % (21.0-51.0); %Monocytes 4.9 % (0.0-10.0); %Neutrophils 86.3 % (42.0-75.0); Hematocrit 27.3 % (42.0-52.0); Hemoglobin 8.6 g/dL (14.0-18.0); Mean Corpuscular HGB CONC 31.5 g/dL (32.0-36.0); Mean Corpuscular Hemoglobin 26.9 pg (27.0-31.0); Mean Corpuscular Volume 85.3 fl (78.0-98.0); Mean Platelet Volume 10.8 fL (7.4-10.4); Platelet Count 122 10x3/uL (130-400); RBC Distribution Width 17.8 % (11.5-14.5); White Blood Cell (WBC) Count 8.2 10x3/uL (4.8-10.8)
[2023-01-27 04:48] LABS: Phosphorus 3.2 mg/dL (2.3-4.7)
[2023-01-27 04:50] LABS: ALT (SGPT) 11 U/L (8-55); AST (SGOT) 18 U/L (5-34); Albumin 3.6 g/dL (3.4-4.8); Alkaline Phosphatase 78 U/L (40-110); Anion Gap 12 mmol/L (10-20); BUN (Urea Nitrogen) 46 mg/dL (8.4-25.7); Bilirubin, Total 1.2 mg/dL (0.2-1.2); Calc. Creatinine Clearance 37 mL/min (70-130); Calcium 9.4 mg/dL (7.8-10.44); Carbon Dioxide 22 mmol/L (23-31); Chloride 102 mmol/L (98-107); Estimated GFR 29; Globulin 2.6 g/dL (2.4-3.5); Glucose 160 mg/dL (83-110); Magnesium 2.6 mg/dL (1.6-2.6); Potassium 4.4 mmol/L (3.5-5.1); Protein, Total 6.2 g/dL (5.8-8.1); Sodium 132 mmol/L (136-145)
[2023-01-27] MEDS ORDERED: Furosemide 40 MG/4 ML VIAL SLOW IVP SCH (05:15)
[2023-01-27] MEDS: Senokot S 8.6-50 MG TAB PO SCH ×2 (08:36→21:16)
[2023-01-27] MEDS: Sertraline 25 MG TAB PO SCH (08:36)
[2023-01-27] MEDS: Finasteride 5 MG TAB PO SCH (08:36)
[2023-01-27] MEDS: Acetaminophen 500 MG TAB PO SCH ×4 (08:36→21:15)
[2023-01-27] MEDS: Polyethylene Glycol 3350 17 GM Packet PO SCH (08:36)
[2023-01-27] MEDS: HumaLOG 300 UNITS/3 ML VIAL SC PRN (16:44)
[2023-01-27] MEDS: Atorvastatin Calcium 10 MG TAB PO SCH (21:16)
[2023-01-28] MEDS: Dextrose 5%-Lactated Ringers 1,000 ML IV SCH ×2 (01:15→08:21)
[2023-01-28 04:36] LABS: #Eosinphils 0.2 thou/uL (0.0-0.7); #Monocytes 0.4 thou/uL (0.11-0.59); #Neutrophils 4.9 thou/uL (1.40-6.50); %Basophils 0.3 % (0.0-1.0); %Eosinophils 2.6 % (0.0-10.0); %Lymphocytes 10.9 % (21.0-51.0); %Monocytes 5.8 % (0.0-10.0); %Neutrophils 79.9 % (42.0-75.0); Hematocrit 27.7 % (42.0-52.0); Hemoglobin 8.7 g/dL (14.0-18.0); Mean Corpuscular HGB CONC 31.4 g/dL (32.0-36.0); Mean Corpuscular Hemoglobin 26.7 pg (27.0-31.0); Platelet Count 131 10x3/uL (130-400); RBC Distribution Width 17.9 % (11.5-14.5); Red Blood Cell (RBC) Count 3.26 mill/uL (4.70-6.10); White Blood Cell (WBC) Count 6.1 10x3/uL (4.8-10.8)
[2023-01-28 05:03] LABS: Anion Gap 10 mmol/L (10-20); BUN (Urea Nitrogen) 45 mg/dL (8.4-25.7); Calc. Creatinine Clearance 41 mL/min (70-130); Calcium 9.4 mg/dL (7.8-10.44); Carbon Dioxide 24 mmol/L (23-31); Chloride 102 mmol/L (98-107); Estimated GFR 33; Glucose 104 mg/dL (83-110); Magnesium 2.6 mg/dL (1.6-2.6); Sodium 132 mmol/L (136-145)
[2023-01-28 08:30] VITALS: BMI 30.4
[2023-01-28] MEDS ORDERED: Metolazone 2.5 MG TAB PO SCH (08:30)
[2023-01-28] MEDS: Finasteride 5 MG TAB PO SCH (09:07)
[2023-01-28] MEDS: Furosemide 40 MG/4 ML VIAL SLOW IVP SCH (09:07)
[2023-01-28] MEDS: Acetaminophen 500 MG TAB PO SCH ×2 (09:07→13:03)
[2023-01-28] MEDS: Sertraline 25 MG TAB PO SCH (09:07)
[2023-01-28] MEDS: HumaLOG 300 UNITS/3 ML VIAL SC PRN (11:30)
[2023-01-28] MEDS ORDERED: HYDROcodone/Acetaminophen 5/325 mg Tablet PO PRN (15:31)
[2023-01-28] MEDS: Atorvastatin Calcium 10 MG TAB PO SCH (20:40)
[2023-01-29 04:34] LABS: #Eosinphils 0.2 thou/uL (0.0-0.7); #Monocytes 0.6 thou/uL (0.11-0.59); #Neutrophils 4.9 thou/uL (1.40-6.50); %Basophils 0.5 % (0.0-1.0); %Eosinophils 2.9 % (0.0-10.0); %Lymphocytes 13.8 % (21.0-51.0); %Monocytes 8.6 % (0.0-10.0); %Neutrophils 73.4 % (42.0-75.0); Hematocrit 28.2 % (42.0-52.0); Hemoglobin 8.8 g/dL (14.0-18.0); Mean Corpuscular HGB CONC 31.2 g/dL (32.0-36.0); Mean Corpuscular Hemoglobin 26.6 pg (27.0-31.0); Mean Corpuscular Volume 85.2 fl (78.0-98.0); Mean Platelet Volume 10.3 fL (7.4-10.4); Platelet Count 156 10x3/uL (130-400); RBC Distribution Width 18.2 % (11.5-14.5); Red Blood Cell (RBC) Count 3.31 mill/uL (4.70-6.10); White Blood Cell (WBC) Count 6.7 10x3/uL (4.8-10.8)
[2023-01-29 05:03] LABS: ALT (SGPT) 12 U/L (8-55); AST (SGOT) 18 U/L (5-34); Albumin 3.5 g/dL (3.4-4.8); Alkaline Phosphatase 88 U/L (40-110); Anion Gap 14 mmol/L (10-20); BUN (Urea Nitrogen) 51 mg/dL (8.4-25.7); Bilirubin, Total 1.2 mg/dL (0.2-1.2); Calc. Creatinine Clearance 46 mL/min (70-130); Calcium 9.3 mg/dL (7.8-10.44); Carbon Dioxide 22 mmol/L (23-31); Chloride 99 mmol/L (98-107); Estimated GFR 36; Globulin 2.7 g/dL (2.4-3.5); Glucose 119 mg/dL (83-110); Potassium 4.5 mmol/L (3.5-5.1); Protein, Total 6.2 g/dL (5.8-8.1); Sodium 130 mmol/L (136-145)
[2023-01-29] MEDS: Sertraline 25 MG TAB PO SCH (08:30)
[2023-01-29] MEDS: Carvedilol 6.25 MG TAB PO SCH ×2 (08:30→18:58)
[2023-01-29] MEDS: Furosemide 40 MG/4 ML VIAL SLOW IVP SCH (08:30)
[2023-01-29] MEDS: Finasteride 5 MG TAB PO SCH (08:31)
[2023-01-29] MEDS ORDERED: Sodium Chloride 0.9% 1,000 ML IV SCH (09:45)
[2023-01-29] MEDS ORDERED: Ferrous Sulfate 325 MG TAB PO SCH (09:45)
[2023-01-29 10:20] LABS: Iron 31 ug/dL (65-175); Iron Binding Capacity, Total 253 mcg/dL (261-462)
[2023-01-29] MEDS: HumaLOG 300 UNITS/3 ML VIAL SC PRN ×2 (11:41→17:06)
[2023-01-29 19:23] VITALS: BP 138/78
[2023-01-29] MEDS: Apixaban 5 MG TAB PO SCH (20:36)
[2023-01-29] MEDS: Atorvastatin Calcium 10 MG TAB PO SCH (20:36)
[2023-01-30 04:13] LABS: #Eosinphils 0.1 thou/uL (0.0-0.7); #Monocytes 0.6 thou/uL (0.11-0.59); #Neutrophils 4.3 thou/uL (1.40-6.50); %Basophils 0.2 % (0.0-1.0); %Eosinophils 2.2 % (0.0-10.0); %Lymphocytes 13.8 % (21.0-51.0); %Monocytes 9.7 % (0.0-10.0); %Neutrophils 72.9 % (42.0-75.0); Hematocrit 27.1 % (42.0-52.0); Hemoglobin 8.6 g/dL (14.0-18.0); Mean Corpuscular HGB CONC 31.7 g/dL (32.0-36.0); Mean Platelet Volume 10.2 fL (7.4-10.4); Platelet Count 148 10x3/uL (130-400); RBC Distribution Width 18.3 % (11.5-14.5); Red Blood Cell (RBC) Count 3.19 mill/uL (4.70-6.10)
[2023-01-30 04:32] LABS: Albumin 3.6 g/dL (3.4-4.8); Anion Gap 11 mmol/L (10-20); BUN (Urea Nitrogen) 54 mg/dL (8.4-25.7); BUN/Creatinine Ratio 32.14; Calc. Creatinine Clearance 50 mL/min (70-130); Calcium 9.3 mg/dL (7.8-10.44); Carbon Dioxide 22 mmol/L (23-31); Chloride 100 mmol/L (98-107); Estimated GFR 42; Glucose 132 mg/dL (83-110); Phosphorus 2.8 mg/dL (2.3-4.7); Sodium 129 mmol/L (136-145)
[2023-01-30] MEDS ORDERED: Carvedilol 6.25 MG TAB PO SCH (08:00)
[2023-01-30] MEDS ORDERED: Spironolactone 25 MG TAB PO SCH (08:00)
[2023-01-30] MEDS: Finasteride 5 MG TAB PO SCH (08:47)
[2023-01-30] MEDS: Apixaban 5 MG TAB PO SCH (08:47)
[2023-01-30] MEDS: Sertraline 25 MG TAB PO SCH (08:47)
[2023-01-30] MEDS ORDERED: Bumetanide 1 MG TAB PO SCH (09:00)
[2023-01-30] MEDS ORDERED: Empagliflozin 10 MG TAB PO SCH (09:00)
[2023-01-30 09:33] VITALS: TEMP 98.3
[2023-01-30] MEDS: HumaLOG 300 UNITS/3 ML VIAL SC PRN ×2 (10:14→15:25)
== END 2023-01-30 15:40 | DRG 329 ==
LOC: ERS 19:00 → 2NO 22:03 → OBSVTOIN 01-17 14:40 → CCU 01-24 12:58
PROVIDERS: ADMIT Internal Medicine; ATTEND Internal Medicine
PROC: 30233N1 Transfusion of Nonautologous Red Blood Cells into Peripheral Vein, Percutaneous Approach (ICD-10-PCS; 2023-01-16)
PROC: 0DB98ZX Excision of Duodenum, Via Natural or Artificial Opening Endoscopic, Diagnostic (ICD-10-PCS; principal; 2023-01-21)
PROC: 0DBH8ZZ Excision of Cecum, Via Natural or Artificial Opening Endoscopic (ICD-10-PCS; 2023-01-21)
PROC: 0DBL8ZZ Excision of Transverse Colon, Via Natural or Artificial Opening Endoscopic (ICD-10-PCS; 2023-01-21)
PROC: 0DBM8ZZ Excision of Descending Colon, Via Natural or Artificial Opening Endoscopic (ICD-10-PCS; 2023-01-21)
PROC: 3E033XZ Introduction of Vasopressor into Peripheral Vein, Percutaneous Approach (ICD-10-PCS; 2023-01-21)
PROC: 0D1B0Z4 Bypass Ileum to Cutaneous, Open Approach (ICD-10-PCS; 2023-01-24)
PROC: 0DTN0ZZ Resection of Sigmoid Colon, Open Approach (ICD-10-PCS; 2023-01-24)
PROC: 0DJD4ZZ Inspection of Lower Intestinal Tract, Percutaneous Endoscopic Approach (ICD-10-PCS; 2023-01-24)
PROC: 0DBM0ZZ Excision of Descending Colon, Open Approach (ICD-10-PCS; 2023-01-24)
PROC: 3E0M05Z Introduction of Adhesion Barrier into Peritoneal Cavity, Open Approach (ICD-10-PCS; 2023-01-24)
PROC: 02H633Z Insertion of Infusion Device into Right Atrium, Percutaneous Approach (ICD-10-PCS; 2023-01-24)
PROC: 30233J1 Transfusion of Nonautologous Serum Albumin into Peripheral Vein, Percutaneous Approach (ICD-10-PCS; 2023-01-24)
PROC: 5A09357 Assistance with Respiratory Ventilation, Less than 24 Consecutive Hours, Continuous Positive Airway Pressure (ICD-10-PCS; 2023-01-28)
DX: C18.0 Malignant neoplasm of cecum (principal); I50.23 Acute on chronic systolic (congestive) heart failure; I13.0 Hypertensive heart and chronic kidney disease with heart failure and stage 1 through stage 4 chronic kidney disease, or unspecified chronic kidney disease; I48.21 Permanent atrial fibrillation; N17.9 Acute kidney failure, unspecified; E87.1 Hypo-osmolality and hyponatremia; C18.6 Malignant neoplasm of descending colon; I42.8 Other cardiomyopathies; G47.33 Obstructive sleep apnea (adult) (pediatric); D63.1 Anemia in chronic kidney disease; D50.9 Iron deficiency anemia, unspecified; N40.0 Benign prostatic hyperplasia without lower urinary tract symptoms; K59.00 Constipation, unspecified; N18.32 Chronic kidney disease, stage 3b; R53.81 Other malaise; K66.0 Peritoneal adhesions (postprocedural) (postinfection); D12.3 Benign neoplasm of transverse colon; D12.2 Benign neoplasm of ascending colon; K57.30 Diverticulosis of large intestine without perforation or abscess without bleeding; Z11.52 Encounter for screening for COVID-19; K64.4 Residual hemorrhoidal skin tags; E78.5 Hyperlipidemia, unspecified; Z53.31 Laparoscopic surgical procedure converted to open procedure; R33.8 Other retention of urine; Z93.59 Other cystostomy status; Z98.890 Other specified postprocedural states; Z95.810 Presence of automatic (implantable) cardiac defibrillator; Z79.899 Other long term (current) drug therapy; Z79.01 Long term (current) use of anticoagulants; Z90.49 Acquired absence of other specified parts of digestive tract; Z80.0 Family history of malignant neoplasm of digestive organs; Z87.891 Personal history of nicotine dependence
CPT/HCPCS: 36415; 36416; 36430; 71045; 71260; 74177; 76536; 80048; 80053; 80069; 82274; 82378; 82728; 83540; 83550; 83735; 83880; 84100; 84439; 84443; 84481; 84484; 85025; 85610; 85730; 86850; 86900; 86901; 88305; 88309; 93005; 93306; 94660; 94760; 96374; 96375; 96376; 97139; A4314; A4649; C1713; C1751; C1776; C9113; G0378; J0171; J0694; J1100; J1642; J1650; J1815; J1940; J2370; J2405; J2550; J2704; J3010; J3490; J7050; P9016; P9047; Q9967; S0020; U0002